=== PATIENT | male | born 1965 | race Hispanic/Latino ===

== ENCOUNTER 2021-12-16 07:11 | Day surgery (SDC) | payer OTHER ==
[2021-12-14 10:33] LABS: BASOPHILS % (AUTO) 0.9 % (0.0-5.0); HEMATOCRIT 40.2 % (42-54); LYMPHOCYTES % (AUTO) 21.4 % (21.0-51.0); MEAN CORPUSCULAR HEMOGLOBIN 30.8 pg (27.0-33.0); MEAN CORPUSCULAR HGB CONC 31.8 g/dL (32.0-36.0); MEAN CORPUSCULAR VOLUME 96.6 fL (79-99); MONOCYTES % (AUTO) 9.8 % (3.0-13.0); NEUTROPHILS % (AUTO) 63.2 % (40.0-77.0); PLATELET COUNT (AUTO) 148 K/uL (130-400); RED BLOOD CELL COUNT(AUTO) 4.16 MIL/uL (4.50-6.20); RED CELL DISTRIBUTION WIDTH 16.2 % (11.0-15.5); WHITE BLOOD COUNT (AUTO) 5.7 K/uL (4.8-10.8)
[2021-12-14 11:17] LABS: INR 1.08 (0.85-1.15); PROTHROMBIN TIME 11.7 SEC (9.6-11.6)
[2021-12-14 11:18] LABS: PARTIAL THROMBOPLASTIN TIME 30.6 SEC (26.3-35.5)
[2021-12-14 11:38] LABS: POTASSIUM 4.6 mmol/L (3.5-5.1)
[2021-12-14 12:41] LABS: CREATININE 9.3 mg/dL (0.5-1.5)
[2021-12-15 10:14] VITALS: BP 103/68
[~2021-12-16] VITALS: Ht 175.3 cm; Wt 97.6 kg
[2021-12-16] VITALS (12 sets, daily range): BP systolic 69–130; BP diastolic 39–87
[~2021-12-16 07:11] MED LIST: AMIO200T68 PO; APIX5TAB PO; DiphenhydrAMINE HCL 50 MG/ML VIAL IVP SCH; ESOM40CA54 PO; FERR210T PO; INSU100V12 SQ; METO-409 PO; NITR0.4T50 SL; SUCR500T PO
[2021-12-16] MEDS ORDERED: PROPOFOL 10 MG/ML 20ML VIAL IV ONE (09:25)
[2021-12-16] MEDS ORDERED: LIDOCAINE HCL 2% VISCOUS 15 ML UDCUP ONE (09:32)
[2021-12-16] MEDS ORDERED: LIDOCAINE HCL 1% 20 ML VIAL ONE (09:32)
== END 2021-12-16 10:55 | disposition home or self-care (01) ==
LOC: DAH 07:11
PROVIDERS: ATTEND Internal Medicine Interventional Cardiology
DX: I48.0 Paroxysmal atrial fibrillation (principal); Z20.822 Contact with and (suspected) exposure to COVID-19; I34.0 Nonrheumatic mitral (valve) insufficiency; I48.92 Unspecified atrial flutter; I45.10 Unspecified right bundle-branch block; E11.51 Type 2 diabetes mellitus with diabetic peripheral angiopathy without gangrene; I10 Essential (primary) hypertension; E66.01 Morbid (severe) obesity due to excess calories; I25.110 Atherosclerotic heart disease of native coronary artery with unstable angina pectoris; I25.2 Old myocardial infarction; E78.5 Hyperlipidemia, unspecified; Z79.01 Long term (current) use of anticoagulants; Z79.899 Other long term (current) drug therapy; Z95.5 Presence of coronary angioplasty implant and graft; Z82.49 Family history of ischemic heart disease and other diseases of the circulatory system; Z87.891 Personal history of nicotine dependence; Z72.89 Other problems related to lifestyle; Z68.31 Body mass index [BMI] 31.0-31.9, adult
CPT/HCPCS: 80048; 85025; 85610; 85730; 36415 ×2; 84132; 82948; 87426; 92960; 93312; 93005 ×2; A4223 ×3; J2704; A4615; A4215; A7002; A4222; A4221; A4663; A4216; A4606; 76942; 99156; 99157

== ENCOUNTER 2022-07-19 15:49 | Emergency (ER) | payer OTHER ==
[~2022-07-19] VITALS: Ht 175.3 cm; Wt 99.8 kg
[~2022-07-19 15:49] MED LIST changes: -DiphenhydrAMINE HCL 50 MG/ML VIAL IVP SCH
[2022-07-19] MEDS ORDERED: CHLORPROMAZINE HCL 25 MG/ML 1ML AMP IM SCH (17:30)
[2022-07-19 18:42] VITALS: BP 108/61
[2022-07-19] MEDS ORDERED: CHLO25 PO (18:49)
[2022-07-21] MEDS ORDERED: VERI2.5T PO (13:41)
[2022-07-21] MEDS ORDERED: PROP150T28 PO (13:42)
== END 2022-07-19 18:56 | disposition home or self-care (01) ==
LOC: EDH 15:49
DX: R06.6 Hiccough (principal); I13.0 Hypertensive heart and chronic kidney disease with heart failure and stage 1 through stage 4 chronic kidney disease, or unspecified chronic kidney disease; E11.22 Type 2 diabetes mellitus with diabetic chronic kidney disease; N18.9 Chronic kidney disease, unspecified; I50.9 Heart failure, unspecified; Z79.01 Long term (current) use of anticoagulants; Z79.4 Long term (current) use of insulin; Z95.5 Presence of coronary angioplasty implant and graft
CPT/HCPCS: 99283; 96372; J3230

== ENCOUNTER 2022-07-26 08:46 | Day surgery (SDC) | payer OTHER ==
[2022-07-21 13:11] LABS: BASOPHILS % (AUTO) 0.6 % (0.0-5.0); EOSINOPHILS % (AUTO) 5.1 % (0.0-8.0); HEMATOCRIT 39.1 % (42-54); LYMPHOCYTES % (AUTO) 17.8 % (21.0-51.0); MEAN CORPUSCULAR HEMOGLOBIN 31.6 pg (27.0-33.0); MEAN CORPUSCULAR HGB CONC 31.5 g/dL (32.0-36.0); MEAN CORPUSCULAR VOLUME 100.5 fL (79-99); MONOCYTES % (AUTO) 11.6 % (3.0-13.0); NEUTROPHILS % (AUTO) 64.7 % (40.0-77.0); PLATELET COUNT (AUTO) 125 K/uL (130-400); RED BLOOD CELL COUNT(AUTO) 3.89 MIL/uL (4.50-6.20); WHITE BLOOD COUNT (AUTO) 4.7 K/uL (4.8-10.8)
[2022-07-21 13:22] LABS: POTASSIUM 4.4 mmol/L (3.5-5.1)
[2022-07-21 13:23] LABS: INR 1.15 (0.85-1.15); PROTHROMBIN TIME 12.4 SEC (9.6-11.6)
[2022-07-21 13:25] LABS: PARTIAL THROMBOPLASTIN TIME 30.3 SEC (26.3-35.5)
[2022-07-21 13:27] LABS: CREATININE 9.1 mg/dL (0.5-1.5)
[2022-07-21 13:34] LABS: B-TYPE NATRIURETIC PEPTIDE 1860 pg/mL (0-100)
[~2022-07-26] VITALS: Ht 175.3 cm; Wt 104.7 kg
[2022-07-26] VITALS (9 sets, daily range): BP systolic 91–107; BP diastolic 61–77
[~2022-07-26 08:46] MED LIST changes: +0.9%NACL 1000ML 1,000 ML IV SCH; -AMIO200T68 PO; -ESOM40CA54 PO; -FERR210T PO; -NITR0.4T50 SL; +PROP150T28 PO; -SUCR500T PO; +VERI2.5T PO
[2022-07-26] MEDS ORDERED: NITROGLYCERIN 50MG VIAL ONE (09:21)
[2022-07-26] MEDS ORDERED: VERAPAMIL HCL 2.5 MG/ML VIAL ONE (09:21)
[2022-07-26] MEDS ORDERED: IOHEXOL 350 MG/ML 100ML INFUS..BTL IV ONE ×2 (09:21→10:37)
[2022-07-26] MEDS ORDERED: LIDOCAINE HCL 400MG/20ML VIAL ONE (09:21)
[2022-07-26] MEDS ORDERED: HEPARIN 10,000 UNIT/10ML (1,000 UNIT/ML) VIAL ONE (09:21)
[2022-07-26] MEDS ORDERED: IOHEXOL-350 50ML VIAL IV ONE (09:21)
[2022-07-26] MEDS ORDERED: BIVALIRUDIN 250 MG/VIAL IV ONE (09:22)
[2022-07-26] MEDS ORDERED: FENTANYL CITRATE PF 50 MCG/1 ML 2ML VIAL ONE (09:52)
[2022-07-26] MEDS ORDERED: MIDAZOLAM HCL 1 MG/ML 2ML VIAL ONE (09:52)
[2022-07-26 10:10] LABS: BASOPHILS % (AUTO) 0.8 % (0.0-5.0); EOSINOPHILS % (AUTO) 3.2 % (0.0-8.0); HEMATOCRIT 38.8 % (42-54); LYMPHOCYTES % (AUTO) 22.3 % (21.0-51.0); MEAN CORPUSCULAR HEMOGLOBIN 31.7 pg (27.0-33.0); MEAN CORPUSCULAR HGB CONC 31.4 g/dL (32.0-36.0); MEAN CORPUSCULAR VOLUME 100.8 fL (79-99); MONOCYTES % (AUTO) 10.3 % (3.0-13.0); NEUTROPHILS % (AUTO) 62.7 % (40.0-77.0); PLATELET COUNT (AUTO) 115 K/uL (130-400); RED BLOOD CELL COUNT(AUTO) 3.85 MIL/uL (4.50-6.20); RED CELL DISTRIBUTION WIDTH 15.6 % (11.0-15.5)
[2022-07-26 10:25] LABS: POTASSIUM 3.9 mmol/L (3.5-5.1)
[2022-07-26 10:27] LABS: CREATININE 9.1 mg/dL (0.5-1.5)
[2022-07-26 10:41] LABS: B-TYPE NATRIURETIC PEPTIDE 1910 pg/mL (0-100)
[2022-07-26] MEDS ORDERED: 0.9%NACL 10ML VIAL IV SCH (11:30)
[2022-07-26] MEDS ORDERED: INSULIN HUMULIN R 100 UNIT/ML 3ML SQ SCH (11:30)
[2022-07-26] MEDS ORDERED: DEXTROSE 50%-WATER 50 ML DISP.SYRIN IV PRN (11:30)
[2022-07-26] MEDS ORDERED: CLOPIDOGREL 300MG TAB ONE (11:33)
== END 2022-07-26 14:50 | disposition home or self-care (01) ==
LOC: DAH 08:46
PROVIDERS: ATTEND Internal Medicine Interventional Cardiology
DX: I25.110 Atherosclerotic heart disease of native coronary artery with unstable angina pectoris (principal); E11.22 Type 2 diabetes mellitus with diabetic chronic kidney disease; I13.2 Hypertensive heart and chronic kidney disease with heart failure and with stage 5 chronic kidney disease, or end stage renal disease; N18.6 End stage renal disease; I50.42 Chronic combined systolic (congestive) and diastolic (congestive) heart failure; E11.43 Type 2 diabetes mellitus with diabetic autonomic (poly)neuropathy; E11.59 Type 2 diabetes mellitus with other circulatory complications; E11.51 Type 2 diabetes mellitus with diabetic peripheral angiopathy without gangrene; I44.7 Left bundle-branch block, unspecified; I48.0 Paroxysmal atrial fibrillation; E66.01 Morbid (severe) obesity due to excess calories; I48.11 Longstanding persistent atrial fibrillation; E78.2 Mixed hyperlipidemia; I42.8 Other cardiomyopathies; Z79.01 Long term (current) use of anticoagulants; Z79.899 Other long term (current) drug therapy; Z68.31 Body mass index [BMI] 31.0-31.9, adult; Z99.2 Dependence on renal dialysis
CPT/HCPCS: 80048 ×2; 83880 ×2; 85025 ×2; 85610; 85730; 36415 ×2; 71045; 93005; 92920; 84484; 82948; 93458; C1887 ×3; C1894 ×2; C1769 ×2; C1760; C1725 ×2; J3010; J3490 ×2; J7030; J2250; J1644; J0583; Q9967 ×3; A4215; A4222; A4221; A4663; A4216; A4606; Q9965 ×3; A4223 ×3; 99156; 99157

== ENCOUNTER 2022-07-31 23:10 | Observation (INO) | payer OTHER ==
[~2022-07-31] VITALS: Ht 175.3 cm; Wt 106.1 kg
[~2022-07-31 23:10] MED LIST changes: -0.9%NACL 1000ML 1,000 ML IV SCH
[2022-07-31 23:41] LABS: BASOPHILS % (AUTO) 0.7 % (0.0-5.0); EOSINOPHILS % (AUTO) 3.4 % (0.0-8.0); HEMATOCRIT 34.2 % (42-54); LYMPHOCYTES % (AUTO) 17.1 % (21.0-51.0); MEAN CORPUSCULAR HEMOGLOBIN 32.2 pg (27.0-33.0); MEAN CORPUSCULAR HGB CONC 31.9 g/dL (32.0-36.0); MEAN CORPUSCULAR VOLUME 101.2 fL (79-99); MONOCYTES % (AUTO) 8.5 % (3.0-13.0); NEUTROPHILS % (AUTO) 69.8 % (40.0-77.0); PLATELET COUNT (AUTO) 94 K/uL (130-400); RED BLOOD CELL COUNT(AUTO) 3.38 MIL/uL (4.50-6.20); RED CELL DISTRIBUTION WIDTH 15.5 % (11.0-15.5); WHITE BLOOD COUNT (AUTO) 5.6 K/uL (4.8-10.8)
[2022-07-31 23:59] LABS: ALBUMIN 3.2 g/dL (3.5-5.0); POTASSIUM 4.1 mmol/L (3.5-5.1); TOTAL PROTEIN, SERUM 7.4 g/dL (6.0-8.3)
[2022-08-01] VITALS (26 sets, daily range): BP systolic 73–160; BP diastolic 33–76
[2022-08-01 00:01] LABS: CREATININE 10.8 mg/dL (0.5-1.5)
[2022-08-01 00:11] LABS: B-TYPE NATRIURETIC PEPTIDE 1320 pg/mL (0-100)
[2022-08-01] MEDS ORDERED: SUCR500T PO (02:50)
[2022-08-01] MEDS ORDERED: ATOR20TA65 PO (02:51)
[2022-08-01] MEDS ORDERED: MIDO10TA PO (02:53)
[2022-08-01] MEDS ORDERED: VERI5TAB PO (02:54)
[2022-08-01] MEDS ORDERED: FERR210T PO (02:57)
[2022-08-01] MEDS ORDERED: METO-408 PO (02:57)
[2022-08-01] MEDS ORDERED: CHLO25TA68 PO (02:58)
[2022-08-01] MEDS ORDERED: CLOP75TA32 PO (02:59)
[2022-08-01] MEDS ORDERED: MAGNESIUM 2GM PREMIX 50ML 50 ML IV PRN (03:00)
[2022-08-01] MEDS ORDERED: HYDROMORPHONE 1 MG INJ IV PRN (03:00)
[2022-08-01] MEDS ORDERED: APIX2.5T PO (03:00)
[2022-08-01] MEDS ORDERED: ONDANSETRON 4MG INJ IV PRN (03:00)
[2022-08-01] MEDS ORDERED: KCL 20 MEQ ERTAB PO PRN (03:00)
[2022-08-01] MEDS ORDERED: POTASSIUM CHLORIDE 10% ELIXIR 20 MEQ/15 ML UDCUP PO PRN (03:00)
[2022-08-01] MEDS ORDERED: ACETAMINOPHEN 325 MG TAB PO PRN ×2 (03:00)
[2022-08-01] MEDS ORDERED: POTASSIUM CHLORIDE 10MEQ/100ML 100 ML IV PRN (03:00)
[2022-08-01 03:16] LABS: BASOPHILS % (AUTO) 0.9 % (0.0-5.0); EOSINOPHILS % (AUTO) 3.8 % (0.0-8.0); HEMATOCRIT 34.4 % (42-54); LYMPHOCYTES % (AUTO) 18.2 % (21.0-51.0); MEAN CORPUSCULAR HEMOGLOBIN 32.2 pg (27.0-33.0); MEAN CORPUSCULAR HGB CONC 32.3 g/dL (32.0-36.0); MEAN CORPUSCULAR VOLUME 99.7 fL (79-99); MONOCYTES % (AUTO) 8.8 % (3.0-13.0); NEUTROPHILS % (AUTO) 67.6 % (40.0-77.0); PLATELET COUNT (AUTO) 103 K/uL (130-400); RED BLOOD CELL COUNT(AUTO) 3.45 MIL/uL (4.50-6.20); RED CELL DISTRIBUTION WIDTH 15.4 % (11.0-15.5); WHITE BLOOD COUNT (AUTO) 5.6 K/uL (4.8-10.8)
[2022-08-01 03:26] LABS: HEMOGLOBIN A1C 8.3 % (4.0-6.0)
[2022-08-01 03:28] LABS: MAGNESIUM 1.9 mg/dL (1.80-2.40); POTASSIUM 4.4 mmol/L (3.5-5.1)
[2022-08-01 03:32] LABS: CREATININE 11.1 mg/dL (0.5-1.5)
[2022-08-01] MEDS: INSULIN HUMULIN R 100 UNIT/ML 3ML SQ SCH ×4 (05:53→20:47)
[2022-08-01] MEDS: PANTOPRAZOLE 40 MG TAB DR PO SCH (08:41)
[2022-08-01] MEDS: LACTULOSE 20 GM/30 ML UDCUP PO SCH ×2 (08:41→19:47)
[2022-08-01] MEDS: APIXABAN 2.5 MG TABLET PO SCH ×2 (08:42→19:47)
[2022-08-01] MEDS: CLOPIDOGREL 75MG TAB PO SCH (08:47)
[2022-08-01] MEDS: METOPROLOL SUCCINATE 25 MG TAB.SR.24H PO SCH (08:48)
[2022-08-01] MEDS ORDERED: NON-FORMULARY MEDICATION 1 EACH (Midodrine HCl 10 MG) PO SCH (09:00)
[2022-08-01] MEDS ORDERED: PHARMACY COMMUNICATION MISC SCH ×2 (09:00→20:00)
[2022-08-01] MEDS ORDERED: MIDODRINE HCL 5 MG TABLET PO SCH (10:30)
[2022-08-01] MEDS: FERRIC CITRATE 210 MG PO SCH ×2 (11:04→15:37)
[2022-08-01] MEDS: SACUBITRIL/VALSARTAN 1 EACH TABLET PO SCH (19:48)
[2022-08-01] MEDS ORDERED: PHARMACY COMMUNICATION MISC PRN (20:00)
[2022-08-01] MEDS ORDERED: ATORVASTATIN 20 MG TABLET PO SCH (21:00)
[2022-08-02 03:20] VITALS: BP 100/45
[2022-08-02 05:07] LABS: BASOPHILS % (AUTO) 0.9 % (0.0-5.0); EOSINOPHILS % (AUTO) 4.2 % (0.0-8.0); LYMPHOCYTES % (AUTO) 16.1 % (21.0-51.0); MEAN CORPUSCULAR HEMOGLOBIN 32.1 pg (27.0-33.0); MEAN CORPUSCULAR HGB CONC 32.1 g/dL (32.0-36.0); MONOCYTES % (AUTO) 10.1 % (3.0-13.0); NEUTROPHILS % (AUTO) 68.3 % (40.0-77.0); PLATELET COUNT (AUTO) 103 K/uL (130-400); RED CELL DISTRIBUTION WIDTH 15.4 % (11.0-15.5); WHITE BLOOD COUNT (AUTO) 5.5 K/uL (4.8-10.8)
[2022-08-02 05:23] LABS: POTASSIUM 3.8 mmol/L (3.5-5.1)
[2022-08-02 05:25] LABS: CREATININE 9.4 mg/dL (0.5-1.5)
[2022-08-02 05:30] LABS: MAGNESIUM 2.1 mg/dL (1.80-2.40)
[2022-08-02] MEDS: INSULIN HUMULIN R 100 UNIT/ML 3ML SQ SCH ×3 (05:59→16:30)
[2022-08-02] MEDS: HYDROCODONE/ACETAMINOPHEN 5/325 MG TAB PO PRN ×2 (06:08→14:57)
[2022-08-02 07:36] VITALS: BP 150/49
[2022-08-02] MEDS: FERRIC CITRATE 210 MG PO SCH ×3 (08:00→16:33)
[2022-08-02] MEDS: LACTULOSE 20 GM/30 ML UDCUP PO SCH (09:00)
[2022-08-02] MEDS: PANTOPRAZOLE 40 MG TAB DR PO SCH (09:05)
[2022-08-02] MEDS: SACUBITRIL/VALSARTAN 1 EACH TABLET PO SCH (09:05)
[2022-08-02] MEDS: METOPROLOL SUCCINATE 25 MG TAB.SR.24H PO SCH (09:06)
[2022-08-02] MEDS: APIXABAN 2.5 MG TABLET PO SCH (09:06)
[2022-08-02] MEDS: CLOPIDOGREL 75MG TAB PO SCH (09:06)
[2022-08-02 10:27] LABS: RETICULOCYTE % (AUTO) 1.86 % (0.42-2.23)
[2022-08-02 11:01] LABS: % IRON SATURATION 20.8 % (30-44)
[2022-08-02 11:48] VITALS: BP 91/63
[2022-08-02] MEDS ORDERED: SACU1TAB PO (12:41)
[2022-08-02] MEDS ORDERED: CHLO25TA68 PO (12:41)
[2022-08-02] MEDS ORDERED: CYANOCOBALAMIN (VITAMIN B-12) 1000 MCG/ML 1ML VIAL IM SCH (13:00)
[2022-08-02] MEDS ORDERED: FOLIC ACID 5 MG/ML VIAL IV SCH (13:00)
[2022-08-02] MEDS ORDERED: IRON SUCROSE COMPLEX 500 MG in 0.9%NACL 50ML 50 ML IV SCH (13:00)
[2022-08-02 16:44] VITALS: BP 98/56
[2022-08-02 20:28] LABS: HEPATITIS B SURFACE ANTIGEN Non-Reactive (Nonreactive)
[2022-08-03] MEDS ORDERED: MIDODRINE HCL 5 MG TABLET PO SCH (09:00)
[2022-08-11] MEDS ORDERED: CHLO25TA68 PO (11:53)
[2022-08-11] MEDS ORDERED: [UNRECOGNIZED DRUG - OTHER] (11:53)
[2022-08-11] MEDS ORDERED: AURYXIA PO (11:53)
[2022-08-11] MEDS ORDERED: PANT40TA54 PO (11:53)
== END 2022-08-02 17:30 | disposition home or self-care (01) ==
LOC: EDH 23:10 → INTOOBSV 08-01 02:42 → EDHIP 08-01 02:42 → 4AH 08-01 03:55
PROVIDERS: ADMIT Internal Medicine; ATTEND Internal Medicine
DX: E87.70 Fluid overload, unspecified (principal); Z20.822 Contact with and (suspected) exposure to COVID-19; I13.2 Hypertensive heart and chronic kidney disease with heart failure and with stage 5 chronic kidney disease, or end stage renal disease; E11.22 Type 2 diabetes mellitus with diabetic chronic kidney disease; I50.43 Acute on chronic combined systolic (congestive) and diastolic (congestive) heart failure; N18.6 End stage renal disease; D63.1 Anemia in chronic kidney disease; I95.9 Hypotension, unspecified; D53.9 Nutritional anemia, unspecified; I25.10 Atherosclerotic heart disease of native coronary artery without angina pectoris; E78.5 Hyperlipidemia, unspecified; Z99.2 Dependence on renal dialysis; Z79.01 Long term (current) use of anticoagulants; Z79.899 Other long term (current) drug therapy; Z79.02 Long term (current) use of antithrombotics/antiplatelets; Z95.5 Presence of coronary angioplasty implant and graft; Z51.5 Encounter for palliative care
CPT/HCPCS: 71045; 87635; 82550; 83874; 84484 ×4; 80053; 83880; 85025 ×3; 87804 ×2; 36415 ×3; 93005; 99285; 96365; 96366; 83036; 83735 ×2; 84100; 80048 ×2; 82140; 87040 ×2; 82948 ×7; 84207; 96372 ×3; 96367; 96375; 83540; 83550; 82728; 85045; 86706; 87340; 86704; 82607; 82746; C9803; J1815 ×3; J3475; G0378; J3420; J3490; J1756; 90935

== ENCOUNTER 2022-08-19 15:00 | Inpatient (IN) | payer OTHER ==
[2022-08-18 10:09] LABS: BASOPHILS # (AUTO) 0.04 K/uL (0.00-0.20); BASOPHILS % (AUTO) 0.9 % (0.0-5.0); EOSINOPHILS # (AUTO) 0.18 K/uL (0.00-0.70); EOSINOPHILS % (AUTO) 3.9 % (0.0-8.0); HEMATOCRIT 36.8 % (42-54); IMMATURE GRANULOCYTE ABSOLUTE 0.01 K/uL (0-1); LYMPHOCYTES # (AUTO) 0.9 K/uL (1.0-4.8); LYMPHOCYTES % (AUTO) 18.6 % (21.0-51.0); MEAN CORPUSCULAR HEMOGLOBIN 32.3 pg (27.0-33.0); MEAN CORPUSCULAR HGB CONC 32.1 g/dL (32.0-36.0); MEAN CORPUSCULAR VOLUME 100.8 fL (79-99); MONOCYTES # (AUTO) 0.5 K/uL (0.1-1.0); MONOCYTES % (AUTO) 9.9 % (3.0-13.0); NEUTROPHILS # (AUTO) 3.1 K/uL (1.8-7.7); NEUTROPHILS % (AUTO) 66.5 % (40.0-77.0); PLATELET COUNT (AUTO) 64 K/uL (130-400); RED BLOOD CELL COUNT(AUTO) 3.65 MIL/uL (4.50-6.20); WHITE BLOOD COUNT (AUTO) 4.6 K/uL (4.8-10.8)
[2022-08-18 10:20] LABS: HEMOGLOBIN A1C 8.1 % (4.0-6.0)
[2022-08-18 10:27] VITALS: BP 100/67; PULSE 128; RESP 19
[2022-08-18 10:36] LABS: ALBUMIN 3.6 g/dL (3.5-5.0); POTASSIUM 3.6 mmol/L (3.5-5.1); TOTAL PROTEIN, SERUM 7.9 g/dL (6.0-8.3)
[2022-08-18 10:42] LABS: CREATININE 8.7 mg/dL (0.5-1.5)
[2022-08-18 10:42] LABS: ABG HCO3 25.4 mmol/L (21.0-28.0); ABG PCO2 36 mmHg (35-48); ABG PH 7.466 (7.35-7.450); DEVICE COMMENT RAM RN RR; PO2, ARTERIAL BG 85.7 mmHg (83.0-108.0); VENT MODE, BG RA (ROOM AIR)
[2022-08-18 10:44] LABS: B-TYPE NATRIURETIC PEPTIDE 1710 pg/mL (0-100)
[~2022-08-19] VITALS: Ht 172.7 cm; Wt 107.5 kg
[~2022-08-19 15:00] MED LIST changes: +APIX2.5T PO; -APIX5TAB PO; +ATOR20TA65 PO; +AURYXIA PO; +CHLO25TA68 PO; +CLOP75TA32 PO; -INSU100V12 SQ; +METO-408 PO; -METO-409 PO; +PANT40TA54 PO; -PROP150T28 PO; +SUCR500T PO; -VERI2.5T PO; +VERI5TAB PO; +[UNRECOGNIZED DRUG - OTHER]
[2022-08-23] VITALS (33 sets, daily range): BP systolic 96–134; BP diastolic 62–85; PULSE 87–117; RESP 11–20; TEMP 98.4–98.7; O2SAT 98–100
[2022-08-23] MEDS ORDERED: AMINOCAPROIC ACID 15,000 MG in 0.9% NACL 500ML IV PRN (08:00)
[2022-08-23] MEDS ORDERED: EPINEPHRINE PF 1MG (1:1,000) 10 MG in 0.9% NACL 250ML 240 ML IV PRN (08:00)
[2022-08-23] MEDS ORDERED: NOREPINEPHRINE BITARTRATE 8 MG in DEXTROSE 5%-WATER 250 ML IV PRN (08:00)
[2022-08-23] MEDS ORDERED: CEFAZOLIN SODIUM 2 GM VIAL ONE (11:01)
[2022-08-23] MEDS ORDERED: 0.9% NACL 500ML IV.SOLN 500 ML IV ONE (11:01)
[2022-08-23 11:14] LABS: POTASSIUM 3.7 mmol/L (3.5-5.1)
[2022-08-23 11:17] LABS: CREATININE 10.5 mg/dL (0.5-1.5)
[2022-08-23] MEDS ORDERED: PAPAVERINE HCL 30 MG/ML 2ML VIAL ONE (11:35)
[2022-08-23] MEDS ORDERED: CEFAZOLIN SODIUM 1 GM VIAL ONE (11:35)
[2022-08-23 11:42] LABS: INR 1.27 (0.85-1.15); PROTHROMBIN TIME 14.5 SEC (9.6-11.6)
[2022-08-23] MEDS ORDERED: MAGNESIUM HYDROXIDE 30 ML/UDCUP PO PRN (12:00)
[2022-08-23] MEDS: SUCROFERRIC OXYHYDROXIDE 500 MG PO SCH ×2 (12:00→17:00)
[2022-08-23] MEDS: FERRIC CITRATE 1 GM PO SCH ×2 (12:00→17:00)
[2022-08-23] MEDS ORDERED: HEPARIN 10,000 UNIT/10ML (1,000 UNIT/ML) VIAL ONE ×2 (12:21→16:15)
[2022-08-23] MEDS ORDERED: ESMOLOL HCL 10 MG/ML 10 ML VIAL ONE (12:21)
[2022-08-23] MEDS ORDERED: EPINEPHRINE PF 1MG (1:1,000) 1 MG/ML AMP ONE (12:21)
[2022-08-23] MEDS ORDERED: AMINOCAPROIC ACID 5,000MG VIAL ONE (12:21)
[2022-08-23] MEDS ORDERED: LIDOCAINE PF 100MG/5ML (2%) SYRINGE 5ML ONE (12:21)
[2022-08-23] MEDS ORDERED: SODIUM BICARB 50MEQ 50ML VIAL 150 ML ONE (12:21)
[2022-08-23] MEDS ORDERED: FENTANYL CITRATE PF 50 MCG/1 ML 20ML VIAL IJ ONE (12:21)
[2022-08-23] MEDS ORDERED: PROPOFOL 10 MG/ML 20ML VIAL IV ONE (12:21)
[2022-08-23] MEDS ORDERED: NOREPINEPHRINE BITARTRATE 1 MG/1 ML ML IV ONE (12:21)
[2022-08-23] MEDS ORDERED: MIDAZOLAM HCL 1 MG/ML 2ML VIAL ONE (12:21)
[2022-08-23] MEDS ORDERED: ROCURONIUM 10MG/1ML SYR 10 MG/ML ML ONE (12:22)
[2022-08-23] MEDS ORDERED: ETOMIDATE 20MG VIAL ONE (12:23)
[2022-08-23] MEDS ORDERED: SUCCINYLCHOLINE CHLORIDE 20 MG/ML 10 ML VIAL ONE (12:25)
[2022-08-23] MEDS ORDERED: CEFAZOLIN SODIUM 2 GM VIAL IVPB ONE (12:45)
[2022-08-23] MEDS ORDERED: INSU100V12 SQ (12:56)
[2022-08-23] MEDS ORDERED: VASOPRESSIN 20 UNITS/ML 1ML VIAL ONE (13:08)
[2022-08-23] MEDS ORDERED: CEFAZOLIN SODIUM 1 GM VIAL IRRIG ONE (13:12)
[2022-08-23] MEDS ORDERED: ONDANSETRON 4MG INJ IV PRN (13:30)
[2022-08-23] MEDS ORDERED: GLUCAGON 1MG KIT 1 MG ML IM PRN (13:30)
[2022-08-23] MEDS ORDERED: ALBUMIN (HUMAN) 5% 250 ML IV PRN (13:30)
[2022-08-23] MEDS ORDERED: PROPOFOL 1000 MG/100 ML 100 ML IV PRN (13:30)
[2022-08-23] MEDS ORDERED: NITROGLYCERIN 50MG/D5W 250ML 250 BOT IV SCH (13:30)
[2022-08-23] MEDS ORDERED: 0.9% NACL 500ML IV.SOLN 500 ML IV SCH (13:30)
[2022-08-23] MEDS ORDERED: INSULIN REGULAR, HUMAN 3ML 100 UNIT in 0.9%NACL 100ML 99 ML IV SCH ×2 (13:30)
[2022-08-23] MEDS ORDERED: MORPHINE 2 MG SYG IV PRN (13:30)
[2022-08-23] MEDS ORDERED: 0.9%NACL 10ML VIAL IVP PRN (13:30)
[2022-08-23] MEDS ORDERED: DEXTROSE 50%-WATER 50 ML DISP.SYRIN IV PRN (13:30)
[2022-08-23] MEDS ORDERED: ACETAMINOPHEN 650 MG SUPPOSITORY RC PRN (13:30)
[2022-08-23] MEDS ORDERED: ACETAMINOPHEN 325 MG TAB PO PRN (13:30)
[2022-08-23] MEDS ORDERED: POTASSIUM PHOS 15 mMOL+NS250ML 250 ML IV PRN (13:30)
[2022-08-23] MEDS ORDERED: AMINOCAPROIC ACID 5,000MG VIAL 15,000 MG in 0.9% NACL 250ML 250 ML IV SCH (13:30)
[2022-08-23] MEDS ORDERED: MORPHINE 4 MG SYG IV PRN (13:30)
[2022-08-23] MEDS ORDERED: 0.9%NACL 1000ML 1,000 ML IV SCH (13:30)
[2022-08-23] MEDS ORDERED: SODIUM BICARB 8.4% 50ML SYRINGE IVP ONE (13:50)
[2022-08-23] MEDS ORDERED: CACL 1GM SYG IVP ONE ×2 (13:50→15:43)
[2022-08-23] MEDS ORDERED: EPINEPHRINE 1MG/10ML(1:10,000) 0.1 MG/ML SYG IVP ONE (13:50)
[2022-08-23] MEDS ORDERED: AMIODARONE 150MG VIAL ONE (14:14)
[2022-08-23] MEDS ORDERED: PROTAMINE SULFATE 10 MG/ML 5 ML VIAL ONE (15:18)
[2022-08-23] MEDS ORDERED: ATROPINE 1MG SYG IVP ONE (15:43)
[2022-08-23] MEDS ORDERED: AMIODARONE IV ONE (15:51)
[2022-08-23] MEDS ORDERED: NACL 0.9% IV ONE (15:51)
[2022-08-23] MEDS ORDERED: ASPIRIN 81MG CHEW TAB NG SCH (16:00)
[2022-08-23] MEDS ORDERED: CALCIUM GLUC 1GM/10ML VIAL ONE ×3 (16:14→16:15)
[2022-08-23] MEDS ORDERED: SODIUM BICARB 50MEQ 50ML VIAL 350 ML ONE (16:15)
[2022-08-23 17:06] LABS: ABG BASE EXCESS -0.4 mmol/L (-2.0-3.0); ABG HCO3 24.2 mmol/L (21.0-28.0); ABG OXYGEN SATURATION 97.3 % (95.0-99.0); ABG PCO2 39 mmHg (35-48); ABG PH 7.406 (7.35-7.450); CARBON MONOXIDE 0.3; HHb 2.7; PO2, ARTERIAL BG 113.2 mmHg (83.0-108.0); VENT MODE, BG SIMV (ROOM AIR)
[2022-08-23] MEDS ORDERED: DEXMEDETOMIDINE 400MCG/NS100ML IV ONE (17:20)
[2022-08-23 17:22] LABS: HEMATOCRIT 28.6 % (42-54); MEAN CORPUSCULAR HEMOGLOBIN 32.3 pg (27.0-33.0); MEAN CORPUSCULAR HGB CONC 32.2 g/dL (32.0-36.0); MEAN CORPUSCULAR VOLUME 100.4 fL (79-99); RED BLOOD CELL COUNT(AUTO) 2.85 MIL/uL (4.50-6.20); RED CELL DISTRIBUTION WIDTH 16.2 % (11.0-15.5); WHITE BLOOD COUNT (AUTO) 11.9 K/uL (4.8-10.8)
[2022-08-23 17:30] LABS: INR 1.71 (0.85-1.15); PROTHROMBIN TIME 19.2 SEC (9.6-11.6)
[2022-08-23 17:31] LABS: PARTIAL THROMBOPLASTIN TIME 26.6 SEC (26.3-35.5)
[2022-08-23 17:40] LABS: MAGNESIUM 1.8 mg/dL (1.80-2.40); POTASSIUM 3.1 mmol/L (3.5-5.1)
[2022-08-23] MEDS: POTASSIUM CHLORIDE 20MEQ/100ML 100 ML IV PRN ×3 (17:59→23:51)
[2022-08-23 18:14] LABS: ABG BASE EXCESS -3.7 mmol/L (-2.0-3.0); ABG HCO3 20.5 mmol/L (21.0-28.0); ABG OXYGEN SATURATION 97.9 % (95.0-99.0); ABG PCO2 34 mmHg (35-48); ABG PH 7.395 (7.35-7.450); CARBON MONOXIDE 0.2; DEVICE COMMENT ALINE; HHb 2.1; VENT MODE, BG SIMV (ROOM AIR)
[2022-08-23 18:17] LABS: ABG BASE EXCESS -2.6 mmol/L (-2.0-3.0); ABG HCO3 21.8 mmol/L (21.0-28.0); ABG PCO2 36 mmHg (35-48); ABG PH 7.398 (7.35-7.450); CARBON MONOXIDE 0.4; DEVICE COMMENT ALINE; PO2, ARTERIAL BG 129.4 mmHg (83.0-108.0); VENT MODE, BG SIMV (ROOM AIR)
[2022-08-23] MEDS: SODIUM BICARB 50MEQ 50ML VIAL IV PRN ×3 (18:34→23:51)
[2022-08-23 19:35] LABS: ABG BASE EXCESS 0.1 mmol/L (-2.0-3.0); ABG OXYGEN SATURATION 98.7 % (95.0-99.0); ABG PCO2 36 mmHg (35-48); ABG PH 7.437 (7.35-7.450); CARBON MONOXIDE 0.5; DEVICE COMMENT ALINE; HHb 1.3; PO2, ARTERIAL BG 158.8 mmHg (83.0-108.0); VENT MODE, BG SIMV (ROOM AIR)
[2022-08-23 19:38] LABS: ABG OXYGEN SATURATION 78.2 % (95.0-99.0); BASE EXCESS,VENOUS BLOOD GAS -1.3 (-2.0-3.0); DEVICE COMMENT RN; HCO3,VENOUS BLOOD GAS 23.2 (21.0-28.0); PCO2,VENOUS BLOOD GAS 38 (35-48); PH,VENOUS BLOOD GAS 7.403 (7.350-7.450); VENT MODE, BG SIMV (ROOM AIR)
[2022-08-23] MEDS: CALCIUM GLUC 1GM 1 GM in 0.9%NACL 50ML 50 ML IV PRN ×3 (19:48→23:51)
[2022-08-23] MEDS: MAGNESIUM 2GM PREMIX 50ML 50 ML IV PRN (19:49)
[2022-08-23] MEDS: CEFAZOLIN SODIUM 1 GM VIAL IVPB SCH (20:42)
[2022-08-23] MEDS: ATORVASTATIN 40 MG TABLET PO SCH (20:43)
[2022-08-23] MEDS: DOCUSATE SODIUM 100 MG CAP PO SCH (21:00)
[2022-08-23 21:43] LABS: ABG BASE EXCESS -2.2 mmol/L (-2.0-3.0); ABG HCO3 21.6 mmol/L (21.0-28.0); ABG PCO2 34 mmHg (35-48); ABG PH 7.421 (7.35-7.450); CARBON MONOXIDE 0.6; DEVICE COMMENT RN CRYSTAL; PO2, ARTERIAL BG 129.6 mmHg (83.0-108.0); VENT MODE, BG SIMV (ROOM AIR)
[2022-08-23] MEDS: AMIODARONE IV PRN (22:07)
[2022-08-23] MEDS: DEXTROSE 5% IV PRN (22:07)
[2022-08-23] MEDS: WATER IV PRN (22:07)
[2022-08-23] MEDS: DEXMEDETOMIDINE 400MCG/NS100ML IV SCH (22:37)
[2022-08-23 23:42] LABS: ABG OXYGEN SATURATION 97.8 % (95.0-99.0); ABG PCO2 35 mmHg (35-48); ABG PH 7.414 (7.35-7.450); CARBON MONOXIDE 0.6; DEVICE COMMENT RN CRYSTAL; HHb 2.2; PO2, ARTERIAL BG 115.2 mmHg (83.0-108.0); VENT MODE, BG SIMV (ROOM AIR)
[2022-08-24] VITALS (91 sets, daily range): BP systolic 50–190; BP diastolic 25–160; PULSE 80–115; RESP 9–43; TEMP 98.7–100.6; O2SAT 94–100
[2022-08-24 01:43] LABS: ABG BASE EXCESS 0.5 mmol/L (-2.0-3.0); ABG HCO3 23.8 mmol/L (21.0-28.0); ABG PCO2 35 mmHg (35-48); ABG PH 7.455 (7.35-7.450); DEVICE COMMENT RN CRYSTAL; PO2, ARTERIAL BG 105.8 mmHg (83.0-108.0); VENT MODE, BG SIMV (ROOM AIR)
[2022-08-24 01:46] LABS: ABG BASE EXCESS -0.4 mmol/L (-2.0-3.0); ABG HCO3 22.9 mmol/L (21.0-28.0); ABG OXYGEN SATURATION 97.9 % (95.0-99.0); ABG PCO2 33 mmHg (35-48); ABG PH 7.457 (7.35-7.450); CARBON MONOXIDE 0.6; DEVICE COMMENT RN CRYSTAL; HHb 2.1; VENT MODE, BG SIMV (ROOM AIR)
[2022-08-24] MEDS: CALCIUM GLUC 1GM 1 GM in 0.9%NACL 50ML 50 ML IV PRN ×3 (01:55→13:55)
[2022-08-24] MEDS: POTASSIUM CHLORIDE 20MEQ/100ML 100 ML IV PRN (01:55)
[2022-08-24] MEDS: CEFAZOLIN SODIUM 1 GM VIAL IVPB SCH ×2 (01:55→10:43)
[2022-08-24] MEDS: DEXMEDETOMIDINE 400MCG/NS100ML IV SCH ×2 (02:34→09:32)
[2022-08-24 03:28] LABS: ABG BASE EXCESS 0.8 mmol/L (-2.0-3.0); ABG HCO3 23.7 mmol/L (21.0-28.0); ABG OXYGEN SATURATION 97.5 % (95.0-99.0); ABG PCO2 33 mmHg (35-48); CARBON MONOXIDE 0.5; DEVICE COMMENT RN CRYSTAL; HHb 2.5; PO2, ARTERIAL BG 104.4 mmHg (83.0-108.0)
[2022-08-24] MEDS ORDERED: CALCIUM GLUC 1GM/10ML VIAL ONE (03:30)
[2022-08-24 03:43] LABS: HEMATOCRIT 34.5 % (42-54); MEAN CORPUSCULAR HEMOGLOBIN 32.4 pg (27.0-33.0); MEAN CORPUSCULAR HGB CONC 32.2 g/dL (32.0-36.0); MEAN CORPUSCULAR VOLUME 100.6 fL (79-99); RED BLOOD CELL COUNT(AUTO) 3.43 MIL/uL (4.50-6.20); RED CELL DISTRIBUTION WIDTH 16.9 % (11.0-15.5); WHITE BLOOD COUNT (AUTO) 11.9 K/uL (4.8-10.8)
[2022-08-24 03:53] LABS: INR 1.28 (0.85-1.15); PROTHROMBIN TIME 14.6 SEC (9.6-11.6)
[2022-08-24 03:54] LABS: PARTIAL THROMBOPLASTIN TIME 26.7 SEC (26.3-35.5)
[2022-08-24 03:58] LABS: MAGNESIUM 2.2 mg/dL (1.80-2.40); PHOSPHORUS 5.4 mg/dL (2.5-4.9); POTASSIUM 4.1 mmol/L (3.5-5.1)
[2022-08-24 04:14] LABS: CREATININE 10.3 mg/dL (0.5-1.5)
[2022-08-24 05:41] LABS: ABG BASE EXCESS -0.9 mmol/L (-2.0-3.0); ABG HCO3 22.3 mmol/L (21.0-28.0); ABG PCO2 33 mmHg (35-48); ABG PH 7.455 (7.35-7.450); CARBON MONOXIDE 0.7; PO2, ARTERIAL BG 96.7 mmHg (83.0-108.0); VENT MODE, BG SIMV (ROOM AIR)
[2022-08-24 07:28] LABS: ABG BASE EXCESS 0.3 mmol/L (-2.0-3.0); ABG HCO3 25.1 mmol/L (21.0-28.0); ABG OXYGEN SATURATION 93.8 % (95.0-99.0); ABG PCO2 41 mmHg (35-48); ABG PH 7.404 (7.35-7.450); CARBON MONOXIDE 0.5; HHb 6.2; PO2, ARTERIAL BG 74.6 mmHg (83.0-108.0); VENT MODE, BG SIMV (ROOM AIR)
[2022-08-24] MEDS: FERRIC CITRATE 1 GM PO SCH ×3 (07:45→16:15)
[2022-08-24] MEDS: SUCROFERRIC OXYHYDROXIDE 500 MG PO SCH ×3 (07:45→16:00)
[2022-08-24] MEDS: DOCUSATE SODIUM 100 MG CAP PO SCH ×2 (08:13→21:47)
[2022-08-24] MEDS: ASPIRIN 81 MG EC TAB PO SCH (08:13)
[2022-08-24] MEDS: PANTOPRAZOLE 40 MG TAB DR PO SCH (08:13)
[2022-08-24 12:06] LABS: ABG BASE EXCESS -0.6 mmol/L (-2.0-3.0); ABG HCO3 23.9 mmol/L (21.0-28.0); ABG OXYGEN SATURATION 94.5 % (95.0-99.0); ABG PCO2 39 mmHg (35-48); CARBON MONOXIDE 0.4; CPAP, BG 5 cm H2O; HHb 5.5; PO2, ARTERIAL BG 78.1 mmHg (83.0-108.0); VENT MODE, BG CPAP 5 PS 5 (ROOM AIR)
[2022-08-24 13:32] LABS: ABG BASE EXCESS -0.6 mmol/L (-2.0-3.0); ABG OXYGEN SATURATION 90.9 % (95.0-99.0); ABG PCO2 39 mmHg (35-48); ABG PH 7.403 (7.35-7.450); CARBON MONOXIDE 0.7; DEVICE COMMENT RR SYLVIA RN; PO2, ARTERIAL BG 64.7 mmHg (83.0-108.0); VENT MODE, BG CAFM (ROOM AIR)
[2022-08-24] MEDS: SODIUM BICARB 50MEQ 50ML VIAL IV PRN (13:54)
[2022-08-24] MEDS: TRAMADOL HCL 50 MG TABLET PO PRN (14:01)
[2022-08-24] MEDS ORDERED: AMIODARONE 200 MG TABLET PO ONE (16:00)
[2022-08-24] MEDS: ATORVASTATIN 40 MG TABLET PO SCH (21:47)
[2022-08-24] MEDS: AMIODARONE 200 MG TABLET PO SCH (21:47)
[2022-08-24] MEDS: EPINEPHRINE PF 1MG (1:1,000) 10 MG in 0.9% NACL 250ML 240 ML IV PRN (22:06)
[2022-08-24] MEDS: NOREPINEPHRIN 4MG/NS 250ML 250 ML IV PRN (22:08)
[2022-08-25] VITALS (99 sets, daily range): BP systolic 51–243; BP diastolic 25–237; PULSE 85–115; RESP 8–57; TEMP 98.9–99.3; O2SAT 94–100
[2022-08-25] LABS: ABG BASE EXCESS 3.9 mmol/L (-2.0-3.0); ABG HCO3 28.2 mmol/L (21.0-28.0); ABG OXYGEN SATURATION 97.8 % (95.0-99.0); ABG PCO2 41 mmHg (35-48); ABG PH 7.452 (7.35-7.450); DEVICE COMMENT RN, ROBERT; PO2, ARTERIAL BG 100.1 mmHg (83.0-108.0); VENT MODE, BG NRB ALINE (ROOM AIR)
[2022-08-25] MEDS: TRAMADOL HCL 50 MG TABLET PO PRN (00:28)
[2022-08-25 05:57] LABS: BASOPHILS # (AUTO) 0.04 K/uL (0.00-0.20); BASOPHILS % (AUTO) 0.3 % (0.0-5.0); EOSINOPHILS # (AUTO) 0.05 K/uL (0.00-0.70); EOSINOPHILS % (AUTO) 0.4 % (0.0-8.0); HEMATOCRIT 31.9 % (42-54); IMMATURE GRANULOCYTE ABSOLUTE 0.07 K/uL (0-1); LYMPHOCYTES # (AUTO) 0.6 K/uL (1.0-4.8); LYMPHOCYTES % (AUTO) 4.8 % (21.0-51.0); MEAN CORPUSCULAR HEMOGLOBIN 32.6 pg (27.0-33.0); MEAN CORPUSCULAR HGB CONC 31.7 g/dL (32.0-36.0); MEAN CORPUSCULAR VOLUME 102.9 fL (79-99); MONOCYTES # (AUTO) 1.3 K/uL (0.1-1.0); MONOCYTES % (AUTO) 10.2 % (3.0-13.0); NEUTROPHILS # (AUTO) 10.9 K/uL (1.8-7.7); NEUTROPHILS % (AUTO) 83.8 % (40.0-77.0); NUCLEATED RED BLOOD CELLS 0.2 % (0.0-0.19); RED CELL DISTRIBUTION WIDTH 17.6 % (11.0-15.5)
[2022-08-25 06:00] LABS: PLATELET COUNT (AUTO) 48 K/uL (130-400)
[2022-08-25 06:08] LABS: CREATININE 8.5 mg/dL (0.5-1.5)
[2022-08-25 06:17] LABS: PLATELET MORPHOLOGY COMMENT MARKED DECREASE
[2022-08-25] MEDS: FERRIC CITRATE 1 GM PO SCH ×3 (08:00→17:00)
[2022-08-25] MEDS: SUCROFERRIC OXYHYDROXIDE 500 MG PO SCH ×3 (08:00→17:00)
[2022-08-25] MEDS: AMIODARONE 200 MG TABLET PO SCH ×2 (09:11→20:02)
[2022-08-25] MEDS: ASPIRIN 81 MG EC TAB PO SCH (09:11)
[2022-08-25] MEDS: DOCUSATE SODIUM 100 MG CAP PO SCH ×2 (09:11→20:02)
[2022-08-25] MEDS: ACETYLCYSTEINE 10% 100MG/ML 4ML VIAL IH SCH ×2 (11:00→18:29)
[2022-08-25] MEDS: IPRATROPIUM 0.5 MG/2.5 ML INH IH SCH ×3 (14:00→21:36)
[2022-08-25] MEDS: MIDODRINE HCL 5 MG TABLET PO SCH ×2 (15:30→20:02)
[2022-08-25] MEDS ORDERED: PHARMACY COMMUNICATION MISC SCH (19:00)
[2022-08-25] MEDS ORDERED: INSULIN REGULAR, HUMAN 3ML 100 UNIT in 0.9%NACL 100ML 99 ML IV SCH ×2 (19:00)
[2022-08-25] MEDS: GUAIFENESIN 600 MG TABLET.ER PO SCH (20:02)
[2022-08-25] MEDS: ATORVASTATIN 40 MG TABLET PO SCH (20:02)
[2022-08-25] MEDS: TRAZODONE HCL 50 MG TAB PO PRN (20:05)
[2022-08-25] MEDS: EPINEPHRINE PF 1MG (1:1,000) 10 MG in 0.9% NACL 250ML 240 ML IV PRN (22:38)
[2022-08-26] VITALS (124 sets, daily range): BP systolic 60–300; BP diastolic 33–300; PULSE 46–168; RESP 10–43; TEMP 98–98.7; O2SAT 94–100
[2022-08-26] MEDS: IPRATROPIUM 0.5 MG/2.5 ML INH IH SCH ×4 (02:00→14:00)
[2022-08-26 04:21] LABS: HEMATOCRIT 29.4 % (42-54); MEAN CORPUSCULAR HEMOGLOBIN 32.9 pg (27.0-33.0); MEAN CORPUSCULAR HGB CONC 31.6 g/dL (32.0-36.0); MEAN CORPUSCULAR VOLUME 103.9 fL (79-99); NUCLEATED RED BLOOD CELLS 0.2 % (0.0-0.19); RED BLOOD CELL COUNT(AUTO) 2.83 MIL/uL (4.50-6.20); RED CELL DISTRIBUTION WIDTH 17.5 % (11.0-15.5); WHITE BLOOD COUNT (AUTO) 10.2 K/uL (4.8-10.8)
[2022-08-26 04:37] LABS: POTASSIUM 3.5 mmol/L (3.5-5.1)
[2022-08-26 04:45] LABS: CREATININE 9.7 mg/dL (0.5-1.5)
[2022-08-26] MEDS: POTASSIUM CHLORIDE 20MEQ/100ML 100 ML IV PRN (05:34)
[2022-08-26] MEDS: NOREPINEPHRIN 4MG/NS 250ML 250 ML IV PRN (05:35)
[2022-08-26] MEDS: ACETYLCYSTEINE 10% 100MG/ML 4ML VIAL IH SCH (06:00)
[2022-08-26] MEDS: TRAMADOL HCL 50 MG TABLET PO PRN ×2 (07:01→14:38)
[2022-08-26] MEDS: PANTOPRAZOLE 40 MG TAB DR PO SCH (07:23)
[2022-08-26] MEDS: SUCROFERRIC OXYHYDROXIDE 500 MG PO SCH ×3 (07:42→16:17)
[2022-08-26] MEDS: FERRIC CITRATE 1 GM PO SCH ×3 (07:43→16:17)
[2022-08-26] MEDS: GUAIFENESIN 600 MG TABLET.ER PO SCH ×2 (07:58→20:17)
[2022-08-26] MEDS: DOCUSATE SODIUM 100 MG CAP PO SCH ×2 (07:59→20:17)
[2022-08-26] MEDS: AMIODARONE 200 MG TABLET PO SCH ×2 (07:59→20:17)
[2022-08-26] MEDS: ASPIRIN 81 MG EC TAB PO SCH (07:59)
[2022-08-26] MEDS: MIDODRINE HCL 5 MG TABLET PO SCH ×3 (07:59→20:18)
[2022-08-26] MEDS: INSULIN HUMULIN R 100 UNIT/ML 3ML SQ SCH ×3 (11:30→20:27)
[2022-08-26] MEDS ORDERED: AMIODARONE 150MG VIAL ONE ×2 (11:39→13:31)
[2022-08-26] MEDS ORDERED: HEPARIN 10,000 UNIT/10ML (1,000 UNIT/ML) VIAL IV ONE (11:46)
[2022-08-26] MEDS ORDERED: MANNITOL 25% 50ML VIAL IV ONE (11:46)
[2022-08-26] MEDS ORDERED: CACL 1GM SYG IVP ONE (11:46)
[2022-08-26] MEDS ORDERED: SODIUM BICARB 8.4% 50ML SYRINGE IVP ONE (11:46)
[2022-08-26] MEDS ORDERED: PHENYLEPHRINE HCL 10 MG/ML 1ML VIAL IV ONE ×2 (11:46→13:50)
[2022-08-26] MEDS ORDERED: AMIODARONE 900MG VIAL 360 MG in DEXTROSE 5%-WATER 200 ML IV SCH (12:00)
[2022-08-26] MEDS ORDERED: AMIODARONE 900MG VIAL 540 MG in DEXTROSE 5%-WATER 300 ML IV SCH (12:00)
[2022-08-26] MEDS: WATER IV PRN (12:07)
[2022-08-26] MEDS: AMIODARONE IV PRN (12:07)
[2022-08-26] MEDS: DEXTROSE 5% IV PRN (12:07)
[2022-08-26 12:08] LABS: HEMATOCRIT 29.4 % (42-54); MEAN CORPUSCULAR HEMOGLOBIN 32.6 pg (27.0-33.0); MEAN CORPUSCULAR HGB CONC 31.6 g/dL (32.0-36.0); MEAN CORPUSCULAR VOLUME 103.2 fL (79-99); RED BLOOD CELL COUNT(AUTO) 2.85 MIL/uL (4.50-6.20); RED CELL DISTRIBUTION WIDTH 17.3 % (11.0-15.5); WHITE BLOOD COUNT (AUTO) 9.5 K/uL (4.8-10.8)
[2022-08-26 12:22] LABS: CARBON DIOXIDE 26 mmol/L (21-32); CHLORIDE 97 mmol/L (101-111); CREATININE 5.4 mg/dL (0.5-1.5); GLOMERULAR FILTR. RATE CALC 12 mL/min (>90); GLUCOSE,RANDOM 126 mg/dL (70-105); POTASSIUM 3.7 mmol/L (3.5-5.1); SODIUM SERUM 137 mmol/L (136-145); UREA NITROGEN, BLOOD 30 mg/dL (7-18)
[2022-08-26 12:26] LABS: ALBUMIN 2.4 g/dL (3.5-5.0); ASPARTATE AMINOTRANSFERASE 136 U/L (10-37); BILIRUBIN,TOTAL 1.1 mg/dL (0.2-1.0); PHOSPHORUS 3.9 mg/dL (2.5-4.9); TOTAL PROTEIN, SERUM 5.9 g/dL (6.0-8.3)
[2022-08-26 12:46] LABS: ALANINE AMINOTRANSFERASE < 6 U/L (12-78)
[2022-08-26] MEDS ORDERED: DIGOXIN 250 MCG/ML 2ML AMP ONE (12:48)
[2022-08-26] MEDS: MAGNESIUM 2GM PREMIX 50ML 50 ML IV PRN (12:53)
[2022-08-26] MEDS ORDERED: DIGOXIN 250 MCG/ML 2ML AMP IV SCH (13:00)
[2022-08-26] MEDS ORDERED: LIDOCAINE 2G/250ML 250 ML IV ONE (13:43)
[2022-08-26] MEDS ORDERED: LIDOCAINE 2G/250ML 250 ML IV SCH (14:00)
[2022-08-26] MEDS: ATORVASTATIN 40 MG TABLET PO SCH (20:17)
[2022-08-26] MEDS: TRAZODONE HCL 50 MG TAB PO PRN (20:17)
[2022-08-26] MEDS: HEPARIN 5,000 UNIT VIAL SQ SCH (20:18)
[2022-08-26] MEDS ORDERED: EPOETIN ALFA-EPBX (NON-ESRD) 10,000 UNIT/ML VIAL SQ SCH (21:00)
[2022-08-26] MEDS: PHENYLEPHRINE HCL 100 MG in 0.9% NACL 250ML 250 ML IV SCH (21:19)
[2022-08-27] VITALS (77 sets, daily range): BP systolic 89–164; BP diastolic 37–97; PULSE 45–118; RESP 9–60; TEMP 98.8–100.8; O2SAT 92–100
[2022-08-27 03:43] LABS: HEMATOCRIT 29.1 % (42-54); MEAN CORPUSCULAR HEMOGLOBIN 32.6 pg (27.0-33.0); MEAN CORPUSCULAR HGB CONC 32.3 g/dL (32.0-36.0); NUCLEATED RED BLOOD CELLS 0.9 % (0.0-0.19); RED BLOOD CELL COUNT(AUTO) 2.88 MIL/uL (4.50-6.20); RED CELL DISTRIBUTION WIDTH 17.4 % (11.0-15.5); WHITE BLOOD COUNT (AUTO) 11.3 K/uL (4.8-10.8)
[2022-08-27 03:47] LABS: ABG HCO3 24.4 mmol/L (21.0-28.0); ABG OXYGEN SATURATION 91.3 % (95.0-99.0); ABG PCO2 54 mmHg (35-48); ABG PH 7.269 (7.35-7.450); CARBON MONOXIDE 0.4; HHb 8.6; PO2, ARTERIAL BG 75.1 mmHg (83.0-108.0); VENT MODE, BG AMBU BAG (ROOM AIR)
[2022-08-27] MEDS ORDERED: EPINEPHRINE PF 1MG (1:1,000) 10 MG in 0.9% NACL 250ML 240 ML IV PRN (04:30)
[2022-08-27] MEDS ORDERED: LIDOCAINE HCL 1% MDV 50ML VIAL ONE (05:08)
[2022-08-27] MEDS ORDERED: DEXMEDETOMIDINE 400MCG/NS100ML IV ONE ×2 (06:12→12:36)
[2022-08-27] MEDS ORDERED: DEXMEDETOMIDINE HCL 400 MCG in 0.9%NACL 100ML 96 ML IV PRN (06:30)
[2022-08-27 07:05] LABS: ABG BASE EXCESS -3.2 mmol/L (-2.0-3.0); ABG HCO3 21.1 mmol/L (21.0-28.0); ABG OXYGEN SATURATION 97.9 % (95.0-99.0); ABG PCO2 35 mmHg (35-48); ABG PH 7.396 (7.35-7.450); CARBON MONOXIDE 0; DEVICE COMMENT RN; HHb 2.1; PO2, ARTERIAL BG 117.2 mmHg (83.0-108.0); VENT MODE, BG AC (ROOM AIR)
[2022-08-27] MEDS: INSULIN HUMULIN R 100 UNIT/ML 3ML SQ SCH ×4 (07:05→21:00)
[2022-08-27 07:11] LABS: HEMATOCRIT 28.9 % (42-54); MEAN CORPUSCULAR HEMOGLOBIN 33.2 pg (27.0-33.0); MEAN CORPUSCULAR HGB CONC 32.2 g/dL (32.0-36.0); MEAN CORPUSCULAR VOLUME 103.2 fL (79-99); RED BLOOD CELL COUNT(AUTO) 2.8 MIL/uL (4.50-6.20); RED CELL DISTRIBUTION WIDTH 17.5 % (11.0-15.5); WHITE BLOOD COUNT (AUTO) 9.6 K/uL (4.8-10.8)
[2022-08-27 07:21] LABS: MAGNESIUM 2.3 mg/dL (1.80-2.40); POTASSIUM 4.6 mmol/L (3.5-5.1)
[2022-08-27 07:27] LABS: CREATININE 8.2 mg/dL (0.5-1.5)
[2022-08-27] MEDS: FERRIC CITRATE 1 GM PO SCH ×3 (08:00→16:07)
[2022-08-27] MEDS: SUCROFERRIC OXYHYDROXIDE 500 MG PO SCH ×3 (08:00→16:07)
[2022-08-27] MEDS: SODIUM BICARB 50MEQ 50ML VIAL IV PRN ×2 (08:25→18:18)
[2022-08-27] MEDS: ASPIRIN 81 MG EC TAB PO SCH (09:08)
[2022-08-27] MEDS: GUAIFENESIN 600 MG TABLET.ER PO SCH ×2 (09:08→21:22)
[2022-08-27] MEDS: DOCUSATE SODIUM 100 MG CAP PO SCH ×2 (09:08→21:25)
[2022-08-27] MEDS: MIDODRINE HCL 5 MG TABLET PO SCH ×3 (09:09→21:22)
[2022-08-27] MEDS: HEPARIN 5,000 UNIT VIAL SQ SCH ×2 (09:10→21:25)
[2022-08-27 10:24] LABS: ABG BASE EXCESS 0.1 mmol/L (-2.0-3.0); ABG HCO3 23.4 mmol/L (21.0-28.0); ABG OXYGEN SATURATION 97.8 % (95.0-99.0); ABG PCO2 33 mmHg (35-48); ABG PH 7.466 (7.35-7.450); CARBON MONOXIDE 0.3; DEVICE COMMENT RN LOREN; HHb 2.2; PO2, ARTERIAL BG 109.3 mmHg (83.0-108.0); VENT MODE, BG AC (ROOM AIR)
[2022-08-27] MEDS ORDERED: CALCIUM GLUC 1GM/10ML VIAL ONE ×2 (10:33→16:15)
[2022-08-27] MEDS: CALCIUM GLUC 1GM 1 GM in 0.9%NACL 50ML 50 ML IV PRN ×2 (10:35→16:15)
[2022-08-27 11:03] LABS: ALBUMIN 2.2 g/dL (3.5-5.0); BILIRUBIN,DIRECT 0.3 mg/dL (0.0-0.3); BILIRUBIN,TOTAL 1.1 mg/dL (0.2-1.0); TOTAL PROTEIN, SERUM 5.3 g/dL (6.0-8.3)
[2022-08-27 12:07] LABS: ABG BASE EXCESS 1.4 mmol/L (-2.0-3.0); ABG HCO3 24.8 mmol/L (21.0-28.0); ABG PCO2 35 mmHg (35-48); ABG PH 7.474 (7.35-7.450); CARBON MONOXIDE 0.2; DEVICE COMMENT RN LOREN; PO2, ARTERIAL BG 94.1 mmHg (83.0-108.0); VENT MODE, BG AC (ROOM AIR)
[2022-08-27 14:05] LABS: ABG BASE EXCESS 1.3 mmol/L (-2.0-3.0); ABG HCO3 24.9 mmol/L (21.0-28.0); ABG OXYGEN SATURATION 96.8 % (95.0-99.0); ABG PCO2 36 mmHg (35-48); CARBON MONOXIDE 0.2; HHb 3.2; VENT MODE, BG ac (ROOM AIR)
[2022-08-27] MEDS: PHENYLEPHRINE HCL 100 MG in 0.9% NACL 250ML 250 ML IV SCH (15:15)
[2022-08-27] MEDS: EPINEPHRINE PF 1MG (1:1,000) 10 MG in 0.9% NACL 250ML 240 ML IV PRN (15:16)
[2022-08-27 16:00] LABS: ABG BASE EXCESS -0.2 mmol/L (-2.0-3.0); ABG HCO3 22.9 mmol/L (21.0-28.0); ABG OXYGEN SATURATION 95.6 % (95.0-99.0); ABG PCO2 32 mmHg (35-48); CARBON MONOXIDE 0.1; HHb 4.4; PO2, ARTERIAL BG 81.9 mmHg (83.0-108.0); VENT MODE, BG ac (ROOM AIR)
[2022-08-27] MEDS: DEXMEDETOMIDINE 400MCG/NS100ML IV SCH ×2 (17:16→23:03)
[2022-08-27 18:13] LABS: ABG BASE EXCESS -1.2 mmol/L (-2.0-3.0); ABG HCO3 21.8 mmol/L (21.0-28.0); ABG OXYGEN SATURATION 96.3 % (95.0-99.0); ABG PCO2 31 mmHg (35-48); ABG PH 7.467 (7.35-7.450); CARBON MONOXIDE 0.1; DEVICE COMMENT aline; HHb 3.7; PO2, ARTERIAL BG 87.9 mmHg (83.0-108.0)
[2022-08-27 20:00] LABS: ABG BASE EXCESS -0.7 mmol/L (-2.0-3.0); ABG HCO3 22.1 mmol/L (21.0-28.0); ABG OXYGEN SATURATION 96.1 % (95.0-99.0); ABG PCO2 31 mmHg (35-48); ABG PH 7.477 (7.35-7.450); CARBON MONOXIDE 0.1; DEVICE COMMENT ALINE; HHb 3.9
[2022-08-27] MEDS: ATORVASTATIN 40 MG TABLET PO SCH (21:22)
[2022-08-27] MEDS: ACETAMINOPHEN 325 MG TAB PO PRN (21:23)
[2022-08-27 22:25] LABS: ABG BASE EXCESS -0.2 mmol/L (-2.0-3.0); ABG OXYGEN SATURATION 95.5 % (95.0-99.0); ABG PCO2 33 mmHg (35-48); ABG PH 7.468 (7.35-7.450); CARBON MONOXIDE 0.3; DEVICE COMMENT LINE; HHb 4.5; PO2, ARTERIAL BG 80.9 mmHg (83.0-108.0); VENT MODE, BG ACVC (ROOM AIR)
[2022-08-28] VITALS (69 sets, daily range): BP systolic 1–148; BP diastolic -20–91; PULSE 53–109; RESP 8–34; TEMP 99.7–101.3; O2SAT 91–100
[2022-08-28 00:06] LABS: ABG BASE EXCESS -1.7 mmol/L (-2.0-3.0); ABG HCO3 21.2 mmol/L (21.0-28.0); ABG OXYGEN SATURATION 96.4 % (95.0-99.0); ABG PCO2 30 mmHg (35-48); ABG PH 7.469 (7.35-7.450); CARBON MONOXIDE 0.3; HHb 3.6; PO2, ARTERIAL BG 90.6 mmHg (83.0-108.0); VENT MODE, BG AC (ROOM AIR)
[2022-08-28] MEDS: SODIUM BICARB 50MEQ 50ML VIAL IV PRN ×4 (00:22→22:22)
[2022-08-28] MEDS ORDERED: CALCIUM GLUC 1GM/10ML VIAL ONE ×2 (00:34→22:19)
[2022-08-28] MEDS: DEXMEDETOMIDINE 400MCG/NS100ML IV SCH ×3 (03:06→22:22)
[2022-08-28 04:16] LABS: ABG BASE EXCESS -0.3 mmol/L (-2.0-3.0); ABG HCO3 22.4 mmol/L (21.0-28.0); ABG OXYGEN SATURATION 96.9 % (95.0-99.0); ABG PCO2 31 mmHg (35-48); ABG PH 7.483 (7.35-7.450); CARBON MONOXIDE 0; HHb 3.1; VENT MODE, BG AC (ROOM AIR)
[2022-08-28 04:21] LABS: BASOPHILS # (AUTO) 0.02 K/uL (0.00-0.20); BASOPHILS % (AUTO) 0.2 % (0.0-5.0); HEMATOCRIT 31.3 % (42-54); IMMATURE GRANULOCYTE ABSOLUTE 0.06 K/uL (0-1); LYMPHOCYTES # (AUTO) 0.9 K/uL (1.0-4.8); MEAN CORPUSCULAR HEMOGLOBIN 32.8 pg (27.0-33.0); MEAN CORPUSCULAR HGB CONC 32.6 g/dL (32.0-36.0); MEAN CORPUSCULAR VOLUME 100.6 fL (79-99); MONOCYTES # (AUTO) 1.2 K/uL (0.1-1.0); MONOCYTES % (AUTO) 12.2 % (3.0-13.0); NEUTROPHILS # (AUTO) 7.6 K/uL (1.8-7.7); NUCLEATED RED BLOOD CELLS 0.5 % (0.0-0.19); PLATELET COUNT (AUTO) 78 K/uL (130-400); RED BLOOD CELL COUNT(AUTO) 3.11 MIL/uL (4.50-6.20); RED CELL DISTRIBUTION WIDTH 17.6 % (11.0-15.5); WHITE BLOOD COUNT (AUTO) 9.9 K/uL (4.8-10.8)
[2022-08-28 05:08] LABS: ALBUMIN 2.2 g/dL (3.5-5.0); BILIRUBIN,TOTAL 1.4 mg/dL (0.2-1.0); MAGNESIUM 2.6 mg/dL (1.80-2.40); POTASSIUM 5.7 mmol/L (3.5-5.1); TOTAL PROTEIN, SERUM 5.9 g/dL (6.0-8.3)
[2022-08-28 05:12] LABS: CREATININE 9.2 mg/dL (0.5-1.5)
[2022-08-28 06:44] LABS: ABG BASE EXCESS -0.4 mmol/L (-2.0-3.0); ABG HCO3 22.7 mmol/L (21.0-28.0); ABG OXYGEN SATURATION 96.7 % (95.0-99.0); ABG PCO2 32 mmHg (35-48); ABG PH 7.471 (7.35-7.450); CARBON MONOXIDE 0.1; HHb 3.3; PO2, ARTERIAL BG 94.9 mmHg (83.0-108.0)
[2022-08-28] MEDS: INSULIN HUMULIN R 100 UNIT/ML 3ML SQ SCH ×4 (07:30→23:38)
[2022-08-28] MEDS: SUCROFERRIC OXYHYDROXIDE 500 MG PO SCH ×3 (08:00→16:21)
[2022-08-28] MEDS: FERRIC CITRATE 1 GM PO SCH ×3 (08:00→16:21)
[2022-08-28] MEDS: DOCUSATE SODIUM 100 MG CAP PO SCH ×2 (08:51→20:55)
[2022-08-28] MEDS: GUAIFENESIN 600 MG TABLET.ER PO SCH ×2 (08:51→20:55)
[2022-08-28] MEDS: ASPIRIN 81 MG EC TAB PO SCH (08:51)
[2022-08-28] MEDS: MIDODRINE HCL 5 MG TABLET PO SCH ×3 (08:51→20:55)
[2022-08-28] MEDS: PANTOPRAZOLE 40 MG TAB DR PO SCH (08:51)
[2022-08-28] MEDS: HEPARIN 5,000 UNIT VIAL SQ SCH ×2 (08:52→21:01)
[2022-08-28] MEDS: PHENYLEPHRINE HCL 100 MG in 0.9% NACL 250ML 250 ML IV SCH (08:54)
[2022-08-28 10:18] LABS: ABG BASE EXCESS -1.1 mmol/L (-2.0-3.0); ABG HCO3 21.9 mmol/L (21.0-28.0); ABG OXYGEN SATURATION 95.9 % (95.0-99.0); ABG PCO2 31 mmHg (35-48); ABG PH 7.466 (7.35-7.450); CARBON MONOXIDE 0.1; DEVICE COMMENT RN LOREN; HHb 4.1; PO2, ARTERIAL BG 86.1 mmHg (83.0-108.0)
[2022-08-28] MEDS ORDERED: RENAL DOSE IV PRN (11:00)
[2022-08-28] MEDS ORDERED: 0.9%NACL 50ML IV SCH (11:00)
[2022-08-28] MEDS ORDERED: ZOSYN 3.375GM +NS 50ML IVPB SCH (12:00)
[2022-08-28] MEDS ORDERED: DIGOXIN 250 MCG/ML 2ML AMP IV SCH (13:00)
[2022-08-28 16:27] LABS: ABG BASE EXCESS -2.2 mmol/L (-2.0-3.0); ABG HCO3 20.8 mmol/L (21.0-28.0); ABG OXYGEN SATURATION 95.1 % (95.0-99.0); ABG PCO2 30 mmHg (35-48); ABG PH 7.459 (7.35-7.450); CARBON MONOXIDE 0.3; DEVICE COMMENT RN LOREN; HHb 4.9; PO2, ARTERIAL BG 81.1 mmHg (83.0-108.0); VENT MODE, BG AC (ROOM AIR)
[2022-08-28] MEDS ORDERED: EPINEPHRINE PF 1MG (1:1,000) 10 MG in 0.9% NACL 250ML 240 ML IV PRN (18:00)
[2022-08-28] MEDS: ATORVASTATIN 40 MG TABLET PO SCH (20:55)
[2022-08-28 22:00] LABS: ABG BASE EXCESS -5.1 mmol/L (-2.0-3.0); ABG HCO3 18.1 mmol/L (21.0-28.0); ABG OXYGEN SATURATION 96.6 % (95.0-99.0); ABG PCO2 28 mmHg (35-48); ABG PH 7.428 (7.35-7.450); CARBON MONOXIDE 0.3; HHb 3.4; PO2, ARTERIAL BG 93.5 mmHg (83.0-108.0)
[2022-08-29] VITALS (107 sets, daily range): BP systolic 64–161; BP diastolic 37–110; PULSE 55–130; RESP 9–38; TEMP 97.8–100; O2SAT 95–100
[2022-08-29] MEDS: ZOSYN 3.375GM +NS 50ML IVPB SCH ×3 (01:15→23:39)
[2022-08-29] MEDS ORDERED: PHARMACY COMMUNICATION MISC SCH (01:30)
[2022-08-29] MEDS ORDERED: LEVOFLOXACIN 500 MG/D5W 100 ML 100 ML IV SCH (02:00)
[2022-08-29] MEDS: DEXMEDETOMIDINE 400MCG/NS100ML IV SCH ×7 (03:04→23:38)
[2022-08-29 03:55] LABS: ABG BASE EXCESS -1.4 mmol/L (-2.0-3.0); ABG HCO3 21.8 mmol/L (21.0-28.0); ABG OXYGEN SATURATION 95.8 % (95.0-99.0); ABG PCO2 32 mmHg (35-48); ABG PH 7.452 (7.35-7.450); CARBON MONOXIDE 0.5; HHb 4.2; PO2, ARTERIAL BG 86.6 mmHg (83.0-108.0)
[2022-08-29 04:15] LABS: BASOPHILS # (AUTO) 0.03 K/uL (0.00-0.20); BASOPHILS % (AUTO) 0.3 % (0.0-5.0); EOSINOPHILS # (AUTO) 0.07 K/uL (0.00-0.70); EOSINOPHILS % (AUTO) 0.6 % (0.0-8.0); HEMATOCRIT 32.8 % (42-54); IMMATURE GRANULOCYTE ABSOLUTE 0.11 K/uL (0-1); LYMPHOCYTES # (AUTO) 0.6 K/uL (1.0-4.8); LYMPHOCYTES % (AUTO) 5.1 % (21.0-51.0); MEAN CORPUSCULAR HEMOGLOBIN 32.2 pg (27.0-33.0); MEAN CORPUSCULAR HGB CONC 32.3 g/dL (32.0-36.0); MEAN CORPUSCULAR VOLUME 99.7 fL (79-99); MONOCYTES # (AUTO) 1.2 K/uL (0.1-1.0); MONOCYTES % (AUTO) 10.2 % (3.0-13.0); NEUTROPHILS # (AUTO) 9.3 K/uL (1.8-7.7); NEUTROPHILS % (AUTO) 82.8 % (40.0-77.0); NUCLEATED RED BLOOD CELLS 0.3 % (0.0-0.19); PLATELET COUNT (AUTO) 94 K/uL (130-400); RED BLOOD CELL COUNT(AUTO) 3.29 MIL/uL (4.50-6.20); RED CELL DISTRIBUTION WIDTH 17.7 % (11.0-15.5); WHITE BLOOD COUNT (AUTO) 11.3 K/uL (4.8-10.8)
[2022-08-29 04:36] LABS: BILIRUBIN,TOTAL 1.7 mg/dL (0.2-1.0); MAGNESIUM 2.4 mg/dL (1.80-2.40); POTASSIUM 5.4 mmol/L (3.5-5.1); TOTAL PROTEIN, SERUM 5.7 g/dL (6.0-8.3)
[2022-08-29 05:35] LABS: CREATININE 10.3 mg/dL (0.5-1.5)
[2022-08-29] MEDS: INSULIN HUMULIN R 100 UNIT/ML 3ML SQ SCH ×3 (06:00→17:21)
[2022-08-29] MEDS: SUCROFERRIC OXYHYDROXIDE 500 MG PO SCH ×3 (08:00→17:00)
[2022-08-29] MEDS: FERRIC CITRATE 1 GM PO SCH ×3 (08:00→17:00)
[2022-08-29] MEDS ORDERED: AMIODARONE 150MG VIAL 150 MG in DEXTROSE 5%-WATER 100 ML IV SCH (08:30)
[2022-08-29] MEDS ORDERED: AMIODARONE 900MG VIAL 360 MG in DEXTROSE 5%-WATER 200 ML IV SCH (09:00)
[2022-08-29] MEDS ORDERED: AMIODARONE 900MG VIAL 540 MG in DEXTROSE 5%-WATER 300 ML IV SCH (09:00)
[2022-08-29] MEDS: DOCUSATE NA 100MG/10ML UDCUP PO SCH ×2 (10:23→20:21)
[2022-08-29] MEDS: ASPIRIN 81 MG EC TAB PO SCH (10:23)
[2022-08-29] MEDS: LACTULOSE 20 GM/30 ML UDCUP PO PRN ×2 (10:23→18:33)
[2022-08-29] MEDS: MIDODRINE HCL 5 MG TABLET PO SCH ×3 (10:23→20:21)
[2022-08-29] MEDS: HEPARIN 5,000 UNIT VIAL SQ SCH ×2 (10:24→20:22)
[2022-08-29] MEDS: GUAIFENESIN 600 MG TABLET.ER PO SCH ×2 (10:25→20:23)
[2022-08-29 11:35] LABS: ABG BASE EXCESS 0.9 mmol/L (-2.0-3.0); ABG HCO3 23.8 mmol/L (21.0-28.0); ABG OXYGEN SATURATION 96.2 % (95.0-99.0); ABG PCO2 33 mmHg (35-48); ABG PH 7.483 (7.35-7.450); CARBON MONOXIDE 0.4; HHb 3.8; VENT MODE, BG AC (ROOM AIR)
[2022-08-29] MEDS: CALCIUM GLUC 1GM 1 GM in 0.9%NACL 50ML 50 ML IV PRN ×2 (11:58→12:01)
[2022-08-29 16:58] LABS: ABG HCO3 23.4 mmol/L (21.0-28.0); ABG OXYGEN SATURATION 95.4 % (95.0-99.0); ABG PCO2 34 mmHg (35-48); ABG PH 7.454 (7.35-7.450); CARBON MONOXIDE 0.5; HHb 4.5; VENT MODE, BG AC (ROOM AIR)
[2022-08-29] MEDS ORDERED: CALCIUM GLUC 1GM 2 GM in 0.9%NACL 100ML 100 ML IV SCH (17:30)
[2022-08-29] MEDS: ATORVASTATIN 40 MG TABLET PO SCH (20:21)
[2022-08-29] MEDS: PHENYLEPHRINE HCL 100 MG in 0.9% NACL 250ML 250 ML IV SCH (23:38)
[2022-08-30] VITALS (76 sets, daily range): BP systolic 76–139; BP diastolic 33–70; PULSE 82–114; RESP 10–29; TEMP 98–98.9; O2SAT 95–100
[2022-08-30] MEDS: DEXMEDETOMIDINE 400MCG/NS100ML IV SCH ×3 (03:01→20:54)
[2022-08-30] MEDS: INSULIN HUMULIN R 100 UNIT/ML 3ML SQ SCH ×4 (05:11→18:00)
[2022-08-30 05:28] LABS: BASOPHILS # (AUTO) 0.02 K/uL (0.00-0.20); BASOPHILS % (AUTO) 0.2 % (0.0-5.0); EOSINOPHILS # (AUTO) 0.32 K/uL (0.00-0.70); EOSINOPHILS % (AUTO) 3.8 % (0.0-8.0); HEMATOCRIT 31.4 % (42-54); IMMATURE GRANULOCYTE ABSOLUTE 0.11 K/uL (0-1); LYMPHOCYTES # (AUTO) 0.7 K/uL (1.0-4.8); LYMPHOCYTES % (AUTO) 8.6 % (21.0-51.0); MEAN CORPUSCULAR HEMOGLOBIN 32.3 pg (27.0-33.0); MEAN CORPUSCULAR HGB CONC 32.2 g/dL (32.0-36.0); MEAN CORPUSCULAR VOLUME 100.3 fL (79-99); MONOCYTES # (AUTO) 0.8 K/uL (0.1-1.0); MONOCYTES % (AUTO) 9.4 % (3.0-13.0); NEUTROPHILS # (AUTO) 6.4 K/uL (1.8-7.7); NEUTROPHILS % (AUTO) 76.7 % (40.0-77.0); NUCLEATED RED BLOOD CELLS 0.7 % (0.0-0.19); PLATELET COUNT (AUTO) 52 K/uL (130-400); RED BLOOD CELL COUNT(AUTO) 3.13 MIL/uL (4.50-6.20); RED CELL DISTRIBUTION WIDTH 18.4 % (11.0-15.5); WHITE BLOOD COUNT (AUTO) 8.4 K/uL (4.8-10.8)
[2022-08-30 05:52] LABS: MAGNESIUM 2.1 mg/dL (1.80-2.40); POTASSIUM 4.5 mmol/L (3.5-5.1)
[2022-08-30 06:09] LABS: CREATININE 7.9 mg/dL (0.5-1.5)
[2022-08-30] MEDS: PANTOPRAZOLE 40 MG TAB DR PO SCH ×2 (06:28→08:53)
[2022-08-30 07:13] LABS: ABG HCO3 21.4 mmol/L (21.0-28.0); ABG OXYGEN SATURATION 96.8 % (95.0-99.0); ABG PCO2 32 mmHg (35-48); ABG PH 7.442 (7.35-7.450); CARBON MONOXIDE 0.5; HHb 3.2; PO2, ARTERIAL BG 92.7 mmHg (83.0-108.0); VENT MODE, BG AC (ROOM AIR)
[2022-08-30] MEDS: SODIUM BICARB 50MEQ 50ML VIAL IV PRN (07:28)
[2022-08-30] MEDS: FERRIC CITRATE 1 GM PO SCH ×3 (08:00→15:53)
[2022-08-30] MEDS: SUCROFERRIC OXYHYDROXIDE 500 MG PO SCH ×3 (08:00→15:52)
[2022-08-30] MEDS: GUAIFENESIN 600 MG TABLET.ER PO SCH ×2 (08:53→20:54)
[2022-08-30] MEDS: DOCUSATE NA 100MG/10ML UDCUP PO SCH ×2 (08:53→20:33)
[2022-08-30] MEDS: MIDODRINE HCL 5 MG TABLET PO SCH ×3 (08:54→20:54)
[2022-08-30] MEDS: HEPARIN 5,000 UNIT VIAL SQ SCH ×2 (08:54→20:56)
[2022-08-30] MEDS: AMIODARONE 200 MG TABLET PO SCH (08:54)
[2022-08-30] MEDS: ASPIRIN 81 MG EC TAB PO SCH (08:54)
[2022-08-30] MEDS ORDERED: MIDAZOLAM HCL 1 MG/ML 2ML VIAL ONE (09:54)
[2022-08-30] MEDS ORDERED: MIDAZOLAM HCL 1 MG/ML 2ML VIAL IVP ONE (10:30)
[2022-08-30] MEDS: PHENYLEPHRINE HCL 100 MG in 0.9% NACL 250ML 250 ML IV SCH ×3 (10:56→22:57)
[2022-08-30] MEDS: ZOSYN 3.375GM +NS 50ML IVPB SCH (15:56)
[2022-08-30] MEDS: ATORVASTATIN 40 MG TABLET PO SCH (20:54)
[2022-08-30] MEDS: BALSAM PERU/CASTOR OIL 60 GM TUBE TP SCH (20:57)
[2022-08-31] VITALS (77 sets, daily range): BP systolic 3–128; BP diastolic 2–107; PULSE 76–97; RESP 12–143; TEMP 96–98.8; O2SAT 93–99
[2022-08-31] MEDS: DEXMEDETOMIDINE 400MCG/NS100ML IV SCH ×2 (00:10→05:35)
[2022-08-31] MEDS: ZOSYN 3.375GM +NS 50ML IVPB SCH ×2 (00:48→16:50)
[2022-08-31] MEDS ORDERED: LEVOFLOXACIN 250 MG/D5W 50ML 50 ML IVPB SCH (02:00)
[2022-08-31] MEDS: PHENYLEPHRINE HCL 100 MG in 0.9% NACL 250ML 250 ML IV SCH ×2 (05:37→17:02)
[2022-08-31] MEDS: INSULIN HUMULIN R 100 UNIT/ML 3ML SQ SCH ×5 (06:00→23:18)
[2022-08-31 06:41] LABS: HEMATOCRIT 33.8 % (42-54); MEAN CORPUSCULAR HEMOGLOBIN 32.4 pg (27.0-33.0); MEAN CORPUSCULAR HGB CONC 32.2 g/dL (32.0-36.0); MEAN CORPUSCULAR VOLUME 100.6 fL (79-99); NUCLEATED RED BLOOD CELLS 0.5 % (0.0-0.19); RED BLOOD CELL COUNT(AUTO) 3.36 MIL/uL (4.50-6.20); RED CELL DISTRIBUTION WIDTH 18.9 % (11.0-15.5); WHITE BLOOD COUNT (AUTO) 12.2 K/uL (4.8-10.8)
[2022-08-31 06:46] LABS: POTASSIUM 5.4 mmol/L (3.5-5.1)
[2022-08-31 06:51] LABS: CREATININE 8.7 mg/dL (0.5-1.5)
[2022-08-31] MEDS: SUCROFERRIC OXYHYDROXIDE 500 MG PO SCH ×3 (08:00→17:00)
[2022-08-31] MEDS: FERRIC CITRATE 1 GM PO SCH ×3 (08:00→17:00)
[2022-08-31 08:07] LABS: ABG BASE EXCESS -3.2 mmol/L (-2.0-3.0); ABG HCO3 20.7 mmol/L (21.0-28.0); ABG OXYGEN SATURATION 93.6 % (95.0-99.0); ABG PCO2 34 mmHg (35-48); ABG PH 7.408 (7.35-7.450); CARBON MONOXIDE 0.6; CPAP, BG 5 cm H2O; HHb 6.3; PO2, ARTERIAL BG 74.5 mmHg (83.0-108.0); VENT MODE, BG CPAP PS10 (ROOM AIR)
[2022-08-31 09:45] LABS: ABG BASE EXCESS 0.1 mmol/L (-2.0-3.0); ABG HCO3 25.1 mmol/L (21.0-28.0); ABG OXYGEN SATURATION 99.5 % (95.0-99.0); ABG PCO2 42 mmHg (35-48); ABG PH 7.395 (7.35-7.450); CARBON MONOXIDE 0.3; DEVICE COMMENT 1; HHb 0.5; PO2, ARTERIAL BG 270.3 mmHg (83.0-108.0)
[2022-08-31 09:46] LABS: ABG BASE EXCESS 0.4 mmol/L (-2.0-3.0); ABG HCO3 21.9 mmol/L (21.0-28.0); ABG OXYGEN SATURATION 99.4 % (95.0-99.0); ABG PCO2 26 mmHg (35-48); CARBON MONOXIDE 0.3; DEVICE COMMENT 4; HHb 0.6; PO2, ARTERIAL BG 396.9 mmHg (83.0-108.0)
[2022-08-31 09:46] LABS: ABG BASE EXCESS 0.2 mmol/L (-2.0-3.0); ABG OXYGEN SATURATION 99.5 % (95.0-99.0); ABG PCO2 41 mmHg (35-48); ABG PH 7.403 (7.35-7.450); CARBON MONOXIDE 0.1; DEVICE COMMENT 2; HHb 0.5; PO2, ARTERIAL BG 362.7 mmHg (83.0-108.0)
[2022-08-31 09:46] LABS: ABG BASE EXCESS -2.5 mmol/L (-2.0-3.0); ABG HCO3 18.7 mmol/L (21.0-28.0); ABG OXYGEN SATURATION 99.3 % (95.0-99.0); ABG PCO2 22 mmHg (35-48); ABG PH 7.548 (7.35-7.450); CARBON MONOXIDE 0.3; DEVICE COMMENT 3; HHb 0.7; PO2, ARTERIAL BG 379.5 mmHg (83.0-108.0)
[2022-08-31 09:47] LABS: ABG BASE EXCESS -4.1 mmol/L (-2.0-3.0); ABG HCO3 19.4 mmol/L (21.0-28.0); ABG OXYGEN SATURATION 99.5 % (95.0-99.0); ABG PCO2 30 mmHg (35-48); ABG PH 7.428 (7.35-7.450); CARBON MONOXIDE 0.3; DEVICE COMMENT 5; HHb 0.5; PO2, ARTERIAL BG 397.7 mmHg (83.0-108.0)
[2022-08-31 11:03] LABS: ABG BASE EXCESS -3.3 mmol/L (-2.0-3.0); ABG HCO3 21.4 mmol/L (21.0-28.0); ABG OXYGEN SATURATION 92.2 % (95.0-99.0); ABG PCO2 37 mmHg (35-48); ABG PH 7.377 (7.35-7.450); CARBON MONOXIDE 0.6; HHb 7.7; PO2, ARTERIAL BG 70.6 mmHg (83.0-108.0); VENT MODE, BG CAFM (ROOM AIR)
[2022-08-31] MEDS: ASPIRIN 81 MG EC TAB PO SCH (11:39)
[2022-08-31] MEDS: MIDODRINE HCL 5 MG TABLET PO SCH ×3 (11:39→21:10)
[2022-08-31] MEDS: AMIODARONE 200 MG TABLET PO SCH (11:39)
[2022-08-31] MEDS: DOCUSATE NA 100MG/10ML UDCUP PO SCH ×2 (11:39→21:10)
[2022-08-31] MEDS: GUAIFENESIN 600 MG TABLET.ER PO SCH ×2 (11:39→21:11)
[2022-08-31] MEDS: BALSAM PERU/CASTOR OIL 60 GM TUBE TP SCH ×3 (11:42→21:13)
[2022-08-31] MEDS: HEPARIN 5,000 UNIT VIAL SQ SCH ×2 (11:46→21:11)
[2022-08-31] MEDS ORDERED: ALBUMIN (HUMAN) 25% 100 ML IV ONE (12:27)
[2022-08-31] MEDS ORDERED: ALBUMIN (HUMAN) 25% 100 ML IV PRN (12:30)
[2022-08-31] MEDS: CHLORHEXIDINE GLUCONATE 473 ML MOUTHWASH MM SCH ×2 (18:32→21:58)
[2022-08-31] MEDS: ATORVASTATIN 40 MG TABLET PO SCH (21:11)
[2022-08-31] MEDS: IPRATROPIUM 0.5 MG/2.5 ML INH IH SCH (22:00)
[2022-09-01] VITALS (112 sets, daily range): BP systolic 0–114; BP diastolic -1–68; PULSE 79–103; RESP 14–46; TEMP 97.2–97.6; O2SAT 94–99
[2022-09-01] MEDS: ZOSYN 3.375GM +NS 50ML IVPB SCH ×3 (00:58→23:37)
[2022-09-01] MEDS: CHLORHEXIDINE GLUCONATE 473 ML MOUTHWASH MM SCH ×4 (03:41→23:00)
[2022-09-01 04:31] LABS: BASOPHILS # (AUTO) 0.02 K/uL (0.00-0.20); BASOPHILS % (AUTO) 0.1 % (0.0-5.0); EOSINOPHILS # (AUTO) 0.13 K/uL (0.00-0.70); EOSINOPHILS % (AUTO) 0.9 % (0.0-8.0); HEMATOCRIT 31.3 % (42-54); LYMPHOCYTES # (AUTO) 0.7 K/uL (1.0-4.8); LYMPHOCYTES % (AUTO) 4.9 % (21.0-51.0); MEAN CORPUSCULAR HEMOGLOBIN 32.1 pg (27.0-33.0); MEAN CORPUSCULAR HGB CONC 31.6 g/dL (32.0-36.0); MEAN CORPUSCULAR VOLUME 101.6 fL (79-99); MONOCYTES # (AUTO) 0.9 K/uL (0.1-1.0); MONOCYTES % (AUTO) 6.7 % (3.0-13.0); NEUTROPHILS # (AUTO) 11.9 K/uL (1.8-7.7); NEUTROPHILS % (AUTO) 86.7 % (40.0-77.0); NUCLEATED RED BLOOD CELLS 0.3 % (0.0-0.19); PLATELET COUNT (AUTO) 41 K/uL (130-400); RED BLOOD CELL COUNT(AUTO) 3.08 MIL/uL (4.50-6.20); RED CELL DISTRIBUTION WIDTH 19.3 % (11.0-15.5); WHITE BLOOD COUNT (AUTO) 13.7 K/uL (4.8-10.8)
[2022-09-01 04:43] LABS: ALBUMIN 1.8 g/dL (3.5-5.0); BILIRUBIN,TOTAL 2.1 mg/dL (0.2-1.0); POTASSIUM 4.6 mmol/L (3.5-5.1); TOTAL PROTEIN, SERUM 5.4 g/dL (6.0-8.3)
[2022-09-01 05:34] LABS: ABG BASE EXCESS -3.7 mmol/L (-2.0-3.0); ABG HCO3 21.7 mmol/L (21.0-28.0); ABG OXYGEN SATURATION 97.9 % (95.0-99.0); ABG PCO2 41 mmHg (35-48); ABG PH 7.347 (7.35-7.450); CARBON MONOXIDE 0.2; HHb 2.1; PO2, ARTERIAL BG 117.6 mmHg (83.0-108.0)
[2022-09-01] MEDS ORDERED: CALCIUM GLUC 1GM/10ML VIAL ONE (05:48)
[2022-09-01] MEDS: CALCIUM GLUC 1GM 1 GM in 0.9%NACL 50ML 50 ML IV PRN ×2 (05:49→05:50)
[2022-09-01] MEDS: INSULIN HUMULIN R 100 UNIT/ML 3ML SQ SCH ×4 (05:52→20:49)
[2022-09-01] MEDS: IPRATROPIUM 0.5 MG/2.5 ML INH IH SCH ×3 (06:26→22:04)
[2022-09-01] MEDS: SUCROFERRIC OXYHYDROXIDE 500 MG PO SCH ×3 (08:00→14:26)
[2022-09-01] MEDS: FERRIC CITRATE 1 GM PO SCH ×3 (08:00→14:26)
[2022-09-01] MEDS: PANTOPRAZOLE 40 MG TAB DR PO SCH (08:29)
[2022-09-01] MEDS: DOCUSATE NA 100MG/10ML UDCUP PO SCH ×2 (08:29→20:49)
[2022-09-01] MEDS: ASPIRIN 81 MG EC TAB PO SCH (08:29)
[2022-09-01] MEDS: HEPARIN 5,000 UNIT VIAL SQ SCH ×2 (08:30→20:49)
[2022-09-01] MEDS: GUAIFENESIN 600 MG TABLET.ER PO SCH ×2 (08:30→20:49)
[2022-09-01] MEDS: MIDODRINE HCL 5 MG TABLET PO SCH ×3 (08:30→20:47)
[2022-09-01] MEDS: AMIODARONE 200 MG TABLET PO SCH (08:31)
[2022-09-01] MEDS: BALSAM PERU/CASTOR OIL 60 GM TUBE TP SCH ×3 (08:40→20:50)
[2022-09-01] MEDS: ACETAMINOPHEN 325 MG TAB PO PRN (08:45)
[2022-09-01] MEDS: PHENYLEPHRINE HCL 100 MG in 0.9% NACL 250ML 250 ML IV SCH ×3 (08:47→20:56)
[2022-09-01] MEDS: FLUDROCORTISONE ACETATE 0.1 MG TABLET PO SCH (11:16)
[2022-09-01] MEDS ORDERED: PHARMACY COMMUNICATION MISC SCH (11:30)
[2022-09-01] MEDS ORDERED: PHARMACY COMMUNICATION MISC STA (12:00)
[2022-09-01] MEDS ORDERED: LIDOCAINE HCL 1% 20 ML VIAL ONE (13:23)
[2022-09-01] MEDS ORDERED: LIDOCAINE HCL 1% 20 ML VIAL INJ SCH (15:00)
[2022-09-01] MEDS ORDERED: TRAMADOL HCL 50 MG TABLET PO SCH (20:00)
[2022-09-01] MEDS: ATORVASTATIN 40 MG TABLET PO SCH (20:49)
[2022-09-01] MEDS: TRAZODONE HCL 50 MG TAB PO PRN (20:49)
[2022-09-02] VITALS (129 sets, daily range): BP systolic 57–125; BP diastolic 18–90; PULSE 62–165; RESP 14–39; TEMP 97.7–97.9; O2SAT 92–100
[2022-09-02 04:11] LABS: BASOPHILS # (AUTO) 0.02 K/uL (0.00-0.20); BASOPHILS % (AUTO) 0.1 % (0.0-5.0); EOSINOPHILS % (AUTO) 0.7 % (0.0-8.0); HEMATOCRIT 28.3 % (42-54); IMMATURE GRANULOCYTE ABSOLUTE 0.11 K/uL (0-1); LYMPHOCYTES # (AUTO) 0.7 K/uL (1.0-4.8); MEAN CORPUSCULAR HEMOGLOBIN 32.6 pg (27.0-33.0); MEAN CORPUSCULAR HGB CONC 31.4 g/dL (32.0-36.0); MEAN CORPUSCULAR VOLUME 103.7 fL (79-99); MONOCYTES # (AUTO) 0.9 K/uL (0.1-1.0); NEUTROPHILS # (AUTO) 11.6 K/uL (1.8-7.7); NEUTROPHILS % (AUTO) 86.4 % (40.0-77.0); PLATELET COUNT (AUTO) 52 K/uL (130-400); RED BLOOD CELL COUNT(AUTO) 2.73 MIL/uL (4.50-6.20); RED CELL DISTRIBUTION WIDTH 19.8 % (11.0-15.5); WHITE BLOOD COUNT (AUTO) 13.5 K/uL (4.8-10.8)
[2022-09-02 04:36] LABS: ALBUMIN 1.6 g/dL (3.5-5.0); BILIRUBIN,TOTAL 1.5 mg/dL (0.2-1.0); POTASSIUM 4.4 mmol/L (3.5-5.1); TOTAL PROTEIN, SERUM 5.2 g/dL (6.0-8.3)
[2022-09-02] MEDS: ACETAMINOPHEN 325 MG TAB PO PRN (05:09)
[2022-09-02] MEDS: CHLORHEXIDINE GLUCONATE 473 ML MOUTHWASH MM SCH ×3 (05:11→17:58)
[2022-09-02 05:23] LABS: CREATININE 8.1 mg/dL (0.5-1.5)
[2022-09-02] MEDS: INSULIN HUMULIN R 100 UNIT/ML 3ML SQ SCH ×4 (06:00→20:10)
[2022-09-02] MEDS: IPRATROPIUM 0.5 MG/2.5 ML INH IH SCH ×3 (06:16→18:42)
[2022-09-02] MEDS: PHENYLEPHRINE HCL 100 MG in 0.9% NACL 250ML 250 ML IV SCH ×3 (07:38→20:50)
[2022-09-02] MEDS: SUCROFERRIC OXYHYDROXIDE 500 MG PO SCH ×3 (08:00→17:00)
[2022-09-02] MEDS: FERRIC CITRATE 1 GM PO SCH ×3 (08:00→17:00)
[2022-09-02] MEDS: ASPIRIN 81 MG EC TAB PO SCH (09:06)
[2022-09-02] MEDS: GUAIFENESIN 600 MG TABLET.ER PO SCH ×2 (09:07→20:09)
[2022-09-02] MEDS: DOCUSATE NA 100MG/10ML UDCUP PO SCH ×2 (09:07→20:09)
[2022-09-02] MEDS: AMIODARONE 200 MG TABLET PO SCH (09:07)
[2022-09-02] MEDS: FLUDROCORTISONE ACETATE 0.1 MG TABLET PO SCH (09:07)
[2022-09-02] MEDS: MIDODRINE HCL 5 MG TABLET PO SCH ×3 (09:07→20:09)
[2022-09-02] MEDS: BALSAM PERU/CASTOR OIL 60 GM TUBE TP SCH ×3 (09:09→20:10)
[2022-09-02] MEDS: HEPARIN 5,000 UNIT VIAL SQ SCH ×2 (09:09→20:10)
[2022-09-02] MEDS ORDERED: HEPARIN 5,000 UNIT VIAL IJ SCH (10:00)
[2022-09-02] MEDS ORDERED: ALBUMIN (HUMAN) 25% 100 ML IV PRN (10:30)
[2022-09-02 11:30] LABS: INR 1.49 (0.85-1.15); PROTHROMBIN TIME 16.8 SEC (9.6-11.6)
[2022-09-02 11:32] LABS: PARTIAL THROMBOPLASTIN TIME 43.5 SEC (26.3-35.5)
[2022-09-02] MEDS: DILTIAZEM 125MG+100 ML NS 125 ML IV PRN ×2 (13:15→22:38)
[2022-09-02] MEDS ORDERED: DILTIAZEM 25MG INJ IVP ONE (15:00)
[2022-09-02 16:25] LABS: ABG BASE EXCESS -1.2 mmol/L (-2.0-3.0); ABG HCO3 24.1 mmol/L (21.0-28.0); ABG OXYGEN SATURATION 73.4 % (95.0-99.0); ABG PCO2 43 mmHg (35-48); ABG PH 7.368 (7.35-7.450); CARBON MONOXIDE 0.4; DEVICE COMMENT RR; HHb 26.4; PO2, ARTERIAL BG < 45.0 mmHg (83.0-108.0); VENT MODE, BG NC (ROOM AIR)
[2022-09-02 16:36] LABS: ABG BASE EXCESS -3.6 mmol/L (-2.0-3.0); ABG HCO3 20.7 mmol/L (21.0-28.0); ABG OXYGEN SATURATION 91.4 % (95.0-99.0); ABG PCO2 35 mmHg (35-48); ABG PH 7.394 (7.35-7.450); CARBON MONOXIDE 0.1; DEVICE COMMENT RR; HHb 8.5; PO2, ARTERIAL BG 65.8 mmHg (83.0-108.0); VENT MODE, BG NC (ROOM AIR)
[2022-09-02] MEDS: ZOSYN 3.375GM +NS 50ML IVPB SCH (17:53)
[2022-09-02] MEDS: EPOETIN ALFA-EPBX (NON-ESRD) 10,000 UNIT/ML VIAL SQ SCH (17:58)
[2022-09-02] MEDS: ATORVASTATIN 40 MG TABLET PO SCH (20:09)
[2022-09-02] MEDS: TRAZODONE HCL 50 MG TAB PO PRN (20:09)
[2022-09-02] MEDS ORDERED: TRAMADOL HCL 50 MG TABLET PO SCH (21:00)
[2022-09-03] VITALS (115 sets, daily range): BP systolic 67–131; BP diastolic 29–92; PULSE 84–122; RESP 15–37; O2SAT 95–100
[2022-09-03] MEDS: ZOSYN 3.375GM +NS 50ML IVPB SCH ×2 (00:49→13:09)
[2022-09-03] MEDS: PHENYLEPHRINE HCL 100 MG in 0.9% NACL 250ML 250 ML IV SCH ×3 (02:08→15:58)
[2022-09-03 05:01] LABS: BASOPHILS # (AUTO) 0.03 K/uL (0.00-0.20); BASOPHILS % (AUTO) 0.3 % (0.0-5.0); EOSINOPHILS # (AUTO) 0.12 K/uL (0.00-0.70); HEMATOCRIT 28.3 % (42-54); IMMATURE GRANULOCYTE ABSOLUTE 0.11 K/uL (0-1); LYMPHOCYTES # (AUTO) 0.6 K/uL (1.0-4.8); MEAN CORPUSCULAR HEMOGLOBIN 32.5 pg (27.0-33.0); MEAN CORPUSCULAR HGB CONC 31.4 g/dL (32.0-36.0); MEAN CORPUSCULAR VOLUME 103.3 fL (79-99); MONOCYTES % (AUTO) 8.9 % (3.0-13.0); NEUTROPHILS # (AUTO) 9.6 K/uL (1.8-7.7); NEUTROPHILS % (AUTO) 83.8 % (40.0-77.0); PLATELET COUNT (AUTO) 72 K/uL (130-400); RED BLOOD CELL COUNT(AUTO) 2.74 MIL/uL (4.50-6.20); RED CELL DISTRIBUTION WIDTH 20.5 % (11.0-15.5); WHITE BLOOD COUNT (AUTO) 11.5 K/uL (4.8-10.8)
[2022-09-03 05:15] LABS: ALBUMIN 1.8 g/dL (3.5-5.0); BILIRUBIN,TOTAL 1.6 mg/dL (0.2-1.0); CREATININE 6.4 mg/dL (0.5-1.5); MAGNESIUM 2.1 mg/dL (1.80-2.40); PHOSPHORUS 5.6 mg/dL (2.5-4.9); POTASSIUM 4.1 mmol/L (3.5-5.1); TOTAL PROTEIN, SERUM 5.6 g/dL (6.0-8.3)
[2022-09-03] MEDS: INSULIN HUMULIN R 100 UNIT/ML 3ML SQ SCH ×3 (05:49→17:42)
[2022-09-03] MEDS: IPRATROPIUM 0.5 MG/2.5 ML INH IH SCH ×3 (06:18→21:14)
[2022-09-03] MEDS: DILTIAZEM 125MG+100 ML NS 125 ML IV PRN ×2 (06:22→18:40)
[2022-09-03] MEDS: SUCROFERRIC OXYHYDROXIDE 500 MG PO SCH ×3 (07:37→16:30)
[2022-09-03] MEDS: DOCUSATE NA 100MG/10ML UDCUP PO SCH ×2 (07:37→20:22)
[2022-09-03] MEDS: FERRIC CITRATE 1 GM PO SCH ×3 (07:37→16:30)
[2022-09-03] MEDS: PANTOPRAZOLE 40 MG TAB DR PO SCH (07:51)
[2022-09-03] MEDS: 0.9%NACL 10ML VIAL IV SCH ×2 (07:51→20:21)
[2022-09-03] MEDS: GUAIFENESIN 600 MG TABLET.ER PO SCH ×2 (07:52→20:22)
[2022-09-03] MEDS: MIDODRINE HCL 5 MG TABLET PO SCH ×3 (07:52→20:24)
[2022-09-03] MEDS: AMIODARONE 200 MG TABLET PO SCH (07:52)
[2022-09-03] MEDS: ASPIRIN 81 MG EC TAB PO SCH (07:52)
[2022-09-03] MEDS: FLUDROCORTISONE ACETATE 0.1 MG TABLET PO SCH (07:52)
[2022-09-03] MEDS: BALSAM PERU/CASTOR OIL 60 GM TUBE TP SCH ×3 (07:53→20:26)
[2022-09-03] MEDS: HEPARIN 5,000 UNIT VIAL SQ SCH ×2 (07:54→20:26)
[2022-09-03] MEDS ORDERED: DIGOXIN 250 MCG/ML 2ML AMP IV SCH (19:00)
[2022-09-03] MEDS: DILTIAZEM 180MG SR CAP PO SCH (20:22)
[2022-09-03] MEDS: ATORVASTATIN 40 MG TABLET PO SCH (20:22)
[2022-09-03 21:28] LABS: ABG BASE EXCESS -4.2 mmol/L (-2.0-3.0); ABG HCO3 20.8 mmol/L (21.0-28.0); ABG OXYGEN SATURATION 95.4 % (95.0-99.0); ABG PCO2 38 mmHg (35-48); ABG PH 7.355 (7.35-7.450); PO2, ARTERIAL BG 79.7 mmHg (83.0-108.0); VENT MODE, BG BIPAP 10-5 (ROOM AIR)
[2022-09-04] VITALS (130 sets, daily range): BP systolic 60–170; BP diastolic 23–109; PULSE 68–109; RESP 18–58; O2SAT 94–99
[2022-09-04] MEDS: ZOSYN 3.375GM +NS 50ML IVPB SCH ×2 (00:32→12:52)
[2022-09-04] MEDS: INSULIN HUMULIN R 100 UNIT/ML 3ML SQ SCH ×5 (05:03→22:44)
[2022-09-04 05:22] LABS: BASOPHILS # (AUTO) 0.01 K/uL (0.00-0.20); BASOPHILS % (AUTO) 0.1 % (0.0-5.0); EOSINOPHILS # (AUTO) 0.13 K/uL (0.00-0.70); EOSINOPHILS % (AUTO) 1.3 % (0.0-8.0); HEMATOCRIT 24.6 % (42-54); IMMATURE GRANULOCYTE ABSOLUTE 0.13 K/uL (0-1); LYMPHOCYTES # (AUTO) 0.6 K/uL (1.0-4.8); LYMPHOCYTES % (AUTO) 5.7 % (21.0-51.0); MEAN CORPUSCULAR HEMOGLOBIN 32.2 pg (27.0-33.0); MEAN CORPUSCULAR HGB CONC 31.7 g/dL (32.0-36.0); MEAN CORPUSCULAR VOLUME 101.7 fL (79-99); MONOCYTES # (AUTO) 1.1 K/uL (0.1-1.0); MONOCYTES % (AUTO) 10.6 % (3.0-13.0); NEUTROPHILS # (AUTO) 8.2 K/uL (1.8-7.7); PLATELET COUNT (AUTO) 73 K/uL (130-400); RED BLOOD CELL COUNT(AUTO) 2.42 MIL/uL (4.50-6.20); RED CELL DISTRIBUTION WIDTH 20.6 % (11.0-15.5); WHITE BLOOD COUNT (AUTO) 10.1 K/uL (4.8-10.8)
[2022-09-04 05:48] LABS: ALBUMIN 1.7 g/dL (3.5-5.0); BILIRUBIN,TOTAL 1.5 mg/dL (0.2-1.0); CREATININE 7.3 mg/dL (0.5-1.5); TOTAL PROTEIN, SERUM 5.5 g/dL (6.0-8.3)
[2022-09-04] MEDS: IPRATROPIUM 0.5 MG/2.5 ML INH IH SCH ×2 (06:48→14:37)
[2022-09-04 07:33] LABS: ABG BASE EXCESS -3.8 mmol/L (-2.0-3.0); ABG HCO3 21.4 mmol/L (21.0-28.0); ABG OXYGEN SATURATION 67.3 % (95.0-99.0); ABG PCO2 39 mmHg (35-48); ABG PH 7.354 (7.35-7.450); DEVICE COMMENT RR; PO2, ARTERIAL BG < 45.0 mmHg (83.0-108.0); VENT MODE, BG NC (ROOM AIR)
[2022-09-04] MEDS: SUCROFERRIC OXYHYDROXIDE 500 MG PO SCH ×3 (08:00→17:00)
[2022-09-04] MEDS: FERRIC CITRATE 1 GM PO SCH ×3 (08:00→17:00)
[2022-09-04] MEDS: DOCUSATE NA 100MG/10ML UDCUP PO SCH ×2 (08:15→22:19)
[2022-09-04] MEDS: AMIODARONE 200 MG TABLET PO SCH (08:16)
[2022-09-04] MEDS: 0.9%NACL 10ML VIAL IV SCH ×2 (08:16→22:22)
[2022-09-04] MEDS: FLUDROCORTISONE ACETATE 0.1 MG TABLET PO SCH (08:16)
[2022-09-04] MEDS: ASPIRIN 81 MG EC TAB PO SCH (08:16)
[2022-09-04] MEDS: PANTOPRAZOLE 40 MG TAB DR PO SCH (08:16)
[2022-09-04] MEDS: GUAIFENESIN 600 MG TABLET.ER PO SCH ×2 (08:17→22:19)
[2022-09-04] MEDS: DILTIAZEM 180MG SR CAP PO SCH ×2 (08:17→22:20)
[2022-09-04] MEDS: DIGOXIN 125 MCG TABLET PO SCH (08:17)
[2022-09-04] MEDS: MIDODRINE HCL 5 MG TABLET PO SCH ×3 (08:17→22:19)
[2022-09-04] MEDS: HEPARIN 5,000 UNIT VIAL SQ SCH ×2 (08:27→21:00)
[2022-09-04] MEDS: BALSAM PERU/CASTOR OIL 60 GM TUBE TP SCH ×3 (08:33→22:23)
[2022-09-04] MEDS ORDERED: AMIODARONE 200 MG TABLET PO SCH (09:00)
[2022-09-04] MEDS: PHENYLEPHRINE HCL 100 MG in 0.9% NACL 250ML 250 ML IV SCH (21:48)
[2022-09-04] MEDS: ATORVASTATIN 40 MG TABLET PO SCH (22:20)
[2022-09-05] VITALS (113 sets, daily range): BP systolic 74–145; BP diastolic 26–115; PULSE 60–114; RESP 20–100; TEMP 97.7–98.2; O2SAT 92–99
[2022-09-05] MEDS: ZOSYN 3.375GM +NS 50ML IVPB SCH ×2 (01:01→13:49)
[2022-09-05] MEDS: TRAZODONE HCL 50 MG TAB PO PRN (01:57)
[2022-09-05] MEDS ORDERED: PHARMACY COMMUNICATION MISC SCH (03:30)
[2022-09-05 05:59] LABS: BASOPHILS # (AUTO) 0.02 K/uL (0.00-0.20); BASOPHILS % (AUTO) 0.2 % (0.0-5.0); EOSINOPHILS % (AUTO) 1.9 % (0.0-8.0); HEMATOCRIT 23.2 % (42-54); IMMATURE GRANULOCYTE ABSOLUTE 0.21 K/uL (0-1); LYMPHOCYTES # (AUTO) 0.8 K/uL (1.0-4.8); LYMPHOCYTES % (AUTO) 7.1 % (21.0-51.0); MEAN CORPUSCULAR HEMOGLOBIN 32.4 pg (27.0-33.0); MEAN CORPUSCULAR HGB CONC 31.5 g/dL (32.0-36.0); MEAN CORPUSCULAR VOLUME 103.1 fL (79-99); MONOCYTES # (AUTO) 1.2 K/uL (0.1-1.0); MONOCYTES % (AUTO) 11.3 % (3.0-13.0); NEUTROPHILS # (AUTO) 8.1 K/uL (1.8-7.7); NEUTROPHILS % (AUTO) 77.5 % (40.0-77.0); PLATELET COUNT (AUTO) 97 K/uL (130-400); RED BLOOD CELL COUNT(AUTO) 2.25 MIL/uL (4.50-6.20); RED CELL DISTRIBUTION WIDTH 20.5 % (11.0-15.5); WHITE BLOOD COUNT (AUTO) 10.5 K/uL (4.8-10.8)
[2022-09-05] MEDS: INSULIN HUMULIN R 100 UNIT/ML 3ML SQ SCH ×3 (06:07→17:23)
[2022-09-05 06:12] LABS: ALBUMIN 1.7 g/dL (3.5-5.0); BILIRUBIN,TOTAL 1.5 mg/dL (0.2-1.0); POTASSIUM 4.2 mmol/L (3.5-5.1); TOTAL PROTEIN, SERUM 5.7 g/dL (6.0-8.3)
[2022-09-05 06:14] LABS: CREATININE 7.9 mg/dL (0.5-1.5)
[2022-09-05] MEDS: IPRATROPIUM 0.5 MG/2.5 ML INH IH SCH ×3 (07:12→22:05)
[2022-09-05] MEDS: SUCROFERRIC OXYHYDROXIDE 500 MG PO SCH ×3 (08:00→17:00)
[2022-09-05] MEDS: GUAIFENESIN 600 MG TABLET.ER PO SCH ×2 (09:50→20:25)
[2022-09-05] MEDS: 0.9%NACL 10ML VIAL IV SCH (09:50)
[2022-09-05] MEDS: AMIODARONE 200 MG TABLET PO SCH (09:50)
[2022-09-05] MEDS: FLUDROCORTISONE ACETATE 0.1 MG TABLET PO SCH (09:50)
[2022-09-05] MEDS: DILTIAZEM 180MG SR CAP PO SCH ×2 (09:50→20:26)
[2022-09-05] MEDS: DOCUSATE NA 100MG/10ML UDCUP PO SCH ×2 (09:50→20:26)
[2022-09-05] MEDS: MIDODRINE HCL 5 MG TABLET PO SCH ×3 (09:51→20:25)
[2022-09-05] MEDS: ASPIRIN 81 MG EC TAB PO SCH (09:51)
[2022-09-05] MEDS: BALSAM PERU/CASTOR OIL 60 GM TUBE TP SCH ×3 (09:51→21:00)
[2022-09-05] MEDS: DIGOXIN 125 MCG TABLET PO SCH (09:51)
[2022-09-05] MEDS: HEPARIN 5,000 UNIT VIAL SQ SCH ×2 (09:53→20:25)
[2022-09-05] MEDS: FERRIC CITRATE 1 GM PO SCH ×3 (10:00→17:00)
[2022-09-05] MEDS ORDERED: ALBUMIN (HUMAN) 25% 100 ML IV ONE (14:14)
[2022-09-05] MEDS: EPOETIN ALFA-EPBX (NON-ESRD) 10,000 UNIT/ML VIAL SQ SCH (17:23)
[2022-09-05] MEDS ORDERED: FUROSEMIDE 100MG VIAL IVP ONE (17:30)
[2022-09-05] MEDS: ALBUMIN (HUMAN) 25% 100 ML IV PRN (17:31)
[2022-09-05] MEDS: ATORVASTATIN 40 MG TABLET PO SCH (20:25)
[2022-09-06] VITALS (111 sets, daily range): BP systolic 68–180; BP diastolic 33–93; PULSE 56–115; RESP 9–68; TEMP 99.2–99.5; O2SAT 91–99
[2022-09-06] MEDS: 0.9%NACL 10ML VIAL IV SCH ×2 (01:16→09:52)
[2022-09-06] MEDS: ZOSYN 3.375GM +NS 50ML IVPB SCH ×2 (01:16→12:57)
[2022-09-06] MEDS: INSULIN HUMULIN R 100 UNIT/ML 3ML SQ SCH ×4 (06:00→18:02)
[2022-09-06] MEDS: PHENYLEPHRINE HCL 100 MG in 0.9% NACL 250ML 250 ML IV SCH ×2 (06:25→20:14)
[2022-09-06] MEDS: IPRATROPIUM 0.5 MG/2.5 ML INH IH SCH ×3 (06:41→22:51)
[2022-09-06 07:00] LABS: BASOPHILS # (AUTO) 0.02 K/uL (0.00-0.20); BASOPHILS % (AUTO) 0.2 % (0.0-5.0); EOSINOPHILS # (AUTO) 0.14 K/uL (0.00-0.70); EOSINOPHILS % (AUTO) 1.2 % (0.0-8.0); HEMATOCRIT 23.2 % (42-54); IMMATURE GRANULOCYTE ABSOLUTE 0.26 K/uL (0-1); LYMPHOCYTES # (AUTO) 0.7 K/uL (1.0-4.8); LYMPHOCYTES % (AUTO) 6.2 % (21.0-51.0); MEAN CORPUSCULAR HEMOGLOBIN 32.4 pg (27.0-33.0); MEAN CORPUSCULAR HGB CONC 31.5 g/dL (32.0-36.0); MEAN CORPUSCULAR VOLUME 103.1 fL (79-99); MONOCYTES # (AUTO) 1.2 K/uL (0.1-1.0); MONOCYTES % (AUTO) 10.2 % (3.0-13.0); NEUTROPHILS # (AUTO) 9.4 K/uL (1.8-7.7); NUCLEATED RED BLOOD CELLS 0.4 % (0.0-0.19); PLATELET COUNT (AUTO) 132 K/uL (130-400); RED BLOOD CELL COUNT(AUTO) 2.25 MIL/uL (4.50-6.20); RED CELL DISTRIBUTION WIDTH 21.3 % (11.0-15.5); WHITE BLOOD COUNT (AUTO) 11.8 K/uL (4.8-10.8)
[2022-09-06 07:27] LABS: ALBUMIN 1.9 g/dL (3.5-5.0); BILIRUBIN,TOTAL 1.7 mg/dL (0.2-1.0); CREATININE 6.9 mg/dL (0.5-1.5); POTASSIUM 3.7 mmol/L (3.5-5.1); TOTAL PROTEIN, SERUM 6.2 g/dL (6.0-8.3)
[2022-09-06 07:50] LABS: DIGOXIN 0.88 ng/mL (0.50-2.00)
[2022-09-06] MEDS: FERRIC CITRATE 1 GM PO SCH ×3 (08:00→17:00)
[2022-09-06] MEDS: SUCROFERRIC OXYHYDROXIDE 500 MG PO SCH ×3 (08:00→17:00)
[2022-09-06] MEDS: DOCUSATE NA 100MG/10ML UDCUP PO SCH ×2 (09:20→21:00)
[2022-09-06] MEDS: DILTIAZEM 180MG SR CAP PO SCH ×2 (09:21→20:39)
[2022-09-06] MEDS: GUAIFENESIN 600 MG TABLET.ER PO SCH ×2 (09:22→20:39)
[2022-09-06] MEDS: ASPIRIN 81 MG EC TAB PO SCH (09:22)
[2022-09-06] MEDS: MIDODRINE HCL 5 MG TABLET PO SCH ×3 (09:22→20:39)
[2022-09-06] MEDS: AMIODARONE 200 MG TABLET PO SCH (09:22)
[2022-09-06] MEDS: DIGOXIN 125 MCG TABLET PO SCH (09:22)
[2022-09-06] MEDS: FLUDROCORTISONE ACETATE 0.1 MG TABLET PO SCH (09:22)
[2022-09-06] MEDS: HEPARIN 5,000 UNIT VIAL SQ SCH ×2 (09:27→20:46)
[2022-09-06] MEDS: BALSAM PERU/CASTOR OIL 60 GM TUBE TP SCH ×2 (09:53→14:34)
[2022-09-06] MEDS: ALBUMIN (HUMAN) 25% 100 ML IV PRN (11:39)
[2022-09-06] MEDS: ATORVASTATIN 40 MG TABLET PO SCH (20:39)
[2022-09-06] MEDS: TRAZODONE HCL 50 MG TAB PO PRN (20:50)
[2022-09-06] MEDS: ACETAMINOPHEN 325 MG TAB PO PRN (20:51)
[2022-09-07] VITALS (95 sets, daily range): BP systolic 73–150; BP diastolic 31–116; PULSE 52–96; RESP 14–32; TEMP 98.2–98.9; O2SAT 88–100
[2022-09-07] MEDS: ZOSYN 3.375GM +NS 50ML IVPB SCH ×2 (01:08→13:35)
[2022-09-07] MEDS: INSULIN HUMULIN R 100 UNIT/ML 3ML SQ SCH ×4 (01:10→17:13)
[2022-09-07] MEDS: IPRATROPIUM 0.5 MG/2.5 ML INH IH SCH ×3 (06:19→22:36)
[2022-09-07] MEDS: PHENYLEPHRINE HCL 100 MG in 0.9% NACL 250ML 250 ML IV SCH ×3 (06:31→16:52)
[2022-09-07] MEDS: 0.9%NACL 10ML VIAL IV SCH ×3 (06:32→21:33)
[2022-09-07] MEDS: BALSAM PERU/CASTOR OIL 60 GM TUBE TP SCH ×4 (06:33→21:35)
[2022-09-07 06:56] LABS: HEMATOCRIT 21.3 % (42-54); MEAN CORPUSCULAR HEMOGLOBIN 32.3 pg (27.0-33.0); MEAN CORPUSCULAR HGB CONC 30.5 g/dL (32.0-36.0); NUCLEATED RED BLOOD CELLS 0.8 % (0.0-0.19); RED BLOOD CELL COUNT(AUTO) 2.01 MIL/uL (4.50-6.20); RED CELL DISTRIBUTION WIDTH 20.9 % (11.0-15.5); WHITE BLOOD COUNT (AUTO) 14.3 K/uL (4.8-10.8)
[2022-09-07 07:06] LABS: CREATININE 6.5 mg/dL (0.5-1.5); MAGNESIUM 1.9 mg/dL (1.80-2.40); POTASSIUM 3.2 mmol/L (3.5-5.1)
[2022-09-07] MEDS: PANTOPRAZOLE 40 MG TAB DR PO SCH (07:14)
[2022-09-07] MEDS: FERRIC CITRATE 1 GM PO SCH ×3 (08:00→17:05)
[2022-09-07] MEDS: SUCROFERRIC OXYHYDROXIDE 500 MG PO SCH ×3 (08:00→17:04)
[2022-09-07 08:05] LABS: HEMATOCRIT 22.1 % (42-54)
[2022-09-07] MEDS: DOCUSATE NA 100MG/10ML UDCUP PO SCH ×2 (08:20→21:33)
[2022-09-07] MEDS: DILTIAZEM 180MG SR CAP PO SCH ×2 (08:20→21:28)
[2022-09-07] MEDS: AMIODARONE 200 MG TABLET PO SCH (08:21)
[2022-09-07] MEDS: DIGOXIN 125 MCG TABLET PO SCH (08:21)
[2022-09-07] MEDS: HEPARIN 5,000 UNIT VIAL SQ SCH ×2 (09:13→21:32)
[2022-09-07] MEDS: MIDODRINE HCL 5 MG TABLET PO SCH ×3 (09:14→21:30)
[2022-09-07] MEDS: FLUDROCORTISONE ACETATE 0.1 MG TABLET PO SCH (09:14)
[2022-09-07] MEDS: ASPIRIN 81 MG EC TAB PO SCH (09:15)
[2022-09-07] MEDS: GUAIFENESIN 600 MG TABLET.ER PO SCH ×2 (09:15→21:31)
[2022-09-07] MEDS: EPOETIN ALFA-EPBX (NON-ESRD) 10,000 UNIT/ML VIAL SQ SCH (16:50)
[2022-09-07 21:19] LABS: HEPATITIS B SURFACE ANTIGEN Non-Reactive (Nonreactive)
[2022-09-07] MEDS: ATORVASTATIN 40 MG TABLET PO SCH (21:31)
[2022-09-08] VITALS (97 sets, daily range): BP systolic 72–173; BP diastolic 33–115; PULSE 57–107; RESP 8–33; TEMP 97.6–97.7; O2SAT 85–100
[2022-09-08] MEDS: ZOSYN 3.375GM +NS 50ML IVPB SCH ×2 (00:44→12:00)
[2022-09-08] MEDS: ACETAMINOPHEN 325 MG TAB PO PRN (00:45)
[2022-09-08] MEDS: PHENYLEPHRINE HCL 100 MG in 0.9% NACL 250ML 250 ML IV SCH (03:47)
[2022-09-08 04:46] LABS: CREATININE 5.8 mg/dL (0.5-1.5); MAGNESIUM 1.7 mg/dL (1.80-2.40); POTASSIUM 3.1 mmol/L (3.5-5.1)
[2022-09-08] MEDS: IPRATROPIUM 0.5 MG/2.5 ML INH IH SCH ×3 (06:12→22:42)
[2022-09-08] MEDS: POTASSIUM CHLORIDE 20MEQ/100ML 100 ML IV PRN (06:27)
[2022-09-08] MEDS: INSULIN HUMULIN R 100 UNIT/ML 3ML SQ SCH ×4 (06:32→16:37)
[2022-09-08 06:37] LABS: HEMATOCRIT 23.1 % (42-54); MEAN CORPUSCULAR HEMOGLOBIN 32.6 pg (27.0-33.0); MEAN CORPUSCULAR HGB CONC 32.9 g/dL (32.0-36.0); MEAN CORPUSCULAR VOLUME 99.1 fL (79-99); NUCLEATED RED BLOOD CELLS 1.1 % (0.0-0.19); RED BLOOD CELL COUNT(AUTO) 2.33 MIL/uL (4.50-6.20); RED CELL DISTRIBUTION WIDTH 21.2 % (11.0-15.5); WHITE BLOOD COUNT (AUTO) 15.1 K/uL (4.8-10.8)
[2022-09-08] MEDS: FERRIC CITRATE 1 GM PO SCH ×3 (08:01→16:34)
[2022-09-08] MEDS: 0.9%NACL 10ML VIAL IV SCH ×2 (08:02→20:33)
[2022-09-08] MEDS: SUCROFERRIC OXYHYDROXIDE 500 MG PO SCH ×3 (08:02→16:35)
[2022-09-08] MEDS: FLUDROCORTISONE ACETATE 0.1 MG TABLET PO SCH (08:02)
[2022-09-08] MEDS: DOCUSATE NA 100MG/10ML UDCUP PO SCH ×2 (08:03→20:33)
[2022-09-08] MEDS: GUAIFENESIN 600 MG TABLET.ER PO SCH ×2 (08:03→20:33)
[2022-09-08] MEDS: ASPIRIN 81 MG EC TAB PO SCH (08:03)
[2022-09-08] MEDS: BALSAM PERU/CASTOR OIL 60 GM TUBE TP SCH ×3 (08:04→20:42)
[2022-09-08] MEDS: DIGOXIN 125 MCG TABLET PO SCH (08:04)
[2022-09-08] MEDS: VERQUVO 5 MG PO SCH (08:04)
[2022-09-08] MEDS: HEPARIN 5,000 UNIT VIAL SQ SCH ×2 (08:06→20:37)
[2022-09-08] MEDS: MIDODRINE HCL 5 MG TABLET PO SCH ×3 (08:07→20:33)
[2022-09-08] MEDS: AMIODARONE 200 MG TABLET PO SCH (09:27)
[2022-09-08] MEDS: MAGNESIUM 2GM PREMIX 50ML 50 ML IV PRN (09:31)
[2022-09-08] MEDS: DILTIAZEM 180MG SR CAP PO SCH ×2 (11:28→20:33)
[2022-09-08] MEDS: ATORVASTATIN 40 MG TABLET PO SCH (20:33)
[2022-09-09] VITALS (109 sets, daily range): BP systolic 52–174; BP diastolic 19–107; PULSE 49–88; RESP 8–40; TEMP 97.7–98.6; O2SAT 90–100
[2022-09-09] MEDS: ZOSYN 3.375GM +NS 50ML IVPB SCH ×2 (00:51→15:36)
[2022-09-09] MEDS: INSULIN HUMULIN R 100 UNIT/ML 3ML SQ SCH ×4 (00:52→17:34)
[2022-09-09 04:23] LABS: CREATININE 5.4 mg/dL (0.5-1.5); POTASSIUM 3.3 mmol/L (3.5-5.1)
[2022-09-09 04:41] LABS: BASOPHILS # (AUTO) 0.03 K/uL (0.00-0.20); BASOPHILS % (AUTO) 0.2 % (0.0-5.0); EOSINOPHILS # (AUTO) 0.15 K/uL (0.00-0.70); HEMATOCRIT 22.3 % (42-54); IMMATURE GRANULOCYTE ABSOLUTE 0.32 K/uL (0-1); LYMPHOCYTES # (AUTO) 0.9 K/uL (1.0-4.8); LYMPHOCYTES % (AUTO) 6.3 % (21.0-51.0); MEAN CORPUSCULAR HEMOGLOBIN 33.3 pg (27.0-33.0); MEAN CORPUSCULAR HGB CONC 31.8 g/dL (32.0-36.0); MEAN CORPUSCULAR VOLUME 104.7 fL (79-99); MONOCYTES # (AUTO) 1.1 K/uL (0.1-1.0); MONOCYTES % (AUTO) 7.4 % (3.0-13.0); NEUTROPHILS # (AUTO) 12.3 K/uL (1.8-7.7); NEUTROPHILS % (AUTO) 82.9 % (40.0-77.0); NUCLEATED RED BLOOD CELLS 1.5 % (0.0-0.19); RED BLOOD CELL COUNT(AUTO) 2.13 MIL/uL (4.50-6.20); RED CELL DISTRIBUTION WIDTH 21.5 % (11.0-15.5); WHITE BLOOD COUNT (AUTO) 14.9 K/uL (4.8-10.8)
[2022-09-09 05:03] LABS: PLATELET COUNT (AUTO) 96 K/uL (130-400)
[2022-09-09] MEDS: POTASSIUM CHLORIDE 20MEQ/100ML 100 ML IV PRN (05:22)
[2022-09-09 05:24] LABS: ABG BASE EXCESS -3.2 mmol/L (-2.0-3.0); ABG HCO3 23.2 mmol/L (21.0-28.0); ABG OXYGEN SATURATION 85.9 % (95.0-99.0); ABG PCO2 49 mmHg (35-48); ABG PH 7.295 (7.35-7.450); CARBON MONOXIDE 0.8; HHb 13.9; PO2, ARTERIAL BG 60.4 mmHg (83.0-108.0); VENT MODE, BG BIPAP 14-8 (ROOM AIR)
[2022-09-09] MEDS: PANTOPRAZOLE 40 MG TAB DR PO SCH (06:14)
[2022-09-09] MEDS: IPRATROPIUM 0.5 MG/2.5 ML INH IH SCH (06:31)
[2022-09-09] MEDS: AMIODARONE 200 MG TABLET PO SCH (09:00)
[2022-09-09] MEDS: DILTIAZEM 180MG SR CAP PO SCH ×2 (09:00→20:08)
[2022-09-09] MEDS: MIDODRINE HCL 5 MG TABLET PO SCH ×3 (09:00→20:08)
[2022-09-09] MEDS: DIGOXIN 125 MCG TABLET PO SCH (09:00)
[2022-09-09 10:01] LABS: ABG BASE EXCESS -2.4 mmol/L (-2.0-3.0); ABG OXYGEN SATURATION 72.9 % (95.0-99.0); ABG PCO2 42 mmHg (35-48); ABG PH 7.353 (7.35-7.450); CARBON MONOXIDE 0.6; DEVICE COMMENT RR; HHb 26.8; PO2, ARTERIAL BG < 45.0 mmHg (83.0-108.0); VENT MODE, BG BIPAP 14.8 (ROOM AIR)
[2022-09-09] MEDS: SUCROFERRIC OXYHYDROXIDE 500 MG PO SCH ×3 (10:01→16:21)
[2022-09-09] MEDS: FERRIC CITRATE 1 GM PO SCH ×3 (10:01→17:00)
[2022-09-09] MEDS: 0.9%NACL 10ML VIAL IV SCH ×2 (10:01→20:08)
[2022-09-09] MEDS: VERQUVO 5 MG PO SCH (10:02)
[2022-09-09] MEDS: DOCUSATE NA 100MG/10ML UDCUP PO SCH ×2 (10:33→20:08)
[2022-09-09] MEDS: ASPIRIN 81 MG EC TAB PO SCH (10:33)
[2022-09-09] MEDS: GUAIFENESIN 600 MG TABLET.ER PO SCH ×2 (10:33→20:09)
[2022-09-09] MEDS: FLUDROCORTISONE ACETATE 0.1 MG TABLET PO SCH (10:33)
[2022-09-09] MEDS: HEPARIN 5,000 UNIT VIAL SQ SCH ×2 (10:34→20:09)
[2022-09-09] MEDS: BALSAM PERU/CASTOR OIL 60 GM TUBE TP SCH ×3 (10:34→20:09)
[2022-09-09] MEDS: IPRATROPIUM/ALBUTEROL SULFATE 3 ML SOLUTION IH SCH ×4 (10:42→22:26)
[2022-09-09 12:21] LABS: ABG BASE EXCESS -1.9 mmol/L (-2.0-3.0); ABG HCO3 22.7 mmol/L (21.0-28.0); ABG OXYGEN SATURATION 96.8 % (95.0-99.0); ABG PCO2 38 mmHg (35-48); ABG PH 7.397 (7.35-7.450); CARBON MONOXIDE 0.6; DEVICE COMMENT RN; HHb 3.2; PO2, ARTERIAL BG 95.9 mmHg (83.0-108.0); VENT MODE, BG BIPAP 16 (ROOM AIR)
[2022-09-09 12:36] LABS: BASOPHILS # (AUTO) 0.03 K/uL (0.00-0.20); BASOPHILS % (AUTO) 0.2 % (0.0-5.0); EOSINOPHILS # (AUTO) 0.11 K/uL (0.00-0.70); EOSINOPHILS % (AUTO) 0.8 % (0.0-8.0); HEMATOCRIT 22.2 % (42-54); IMMATURE GRANULOCYTE ABSOLUTE 0.29 K/uL (0-1); LYMPHOCYTES # (AUTO) 0.7 K/uL (1.0-4.8); LYMPHOCYTES % (AUTO) 5.6 % (21.0-51.0); MEAN CORPUSCULAR HEMOGLOBIN 32.1 pg (27.0-33.0); MEAN CORPUSCULAR HGB CONC 31.5 g/dL (32.0-36.0); MEAN CORPUSCULAR VOLUME 101.8 fL (79-99); MONOCYTES # (AUTO) 0.7 K/uL (0.1-1.0); MONOCYTES % (AUTO) 5.5 % (3.0-13.0); NEUTROPHILS # (AUTO) 11.1 K/uL (1.8-7.7); NEUTROPHILS % (AUTO) 85.7 % (40.0-77.0); NUCLEATED RED BLOOD CELLS 1.4 % (0.0-0.19); PLATELET COUNT (AUTO) 74 K/uL (130-400); RED BLOOD CELL COUNT(AUTO) 2.18 MIL/uL (4.50-6.20); RED CELL DISTRIBUTION WIDTH 21.3 % (11.0-15.5)
[2022-09-09 12:48] LABS: ALBUMIN 1.5 g/dL (3.5-5.0); BILIRUBIN,TOTAL 1.2 mg/dL (0.2-1.0); CREATININE 4.4 mg/dL (0.5-1.5); POTASSIUM 3.4 mmol/L (3.5-5.1); TOTAL PROTEIN, SERUM 5.7 g/dL (6.0-8.3)
[2022-09-09] MEDS: EPOETIN ALFA-EPBX (NON-ESRD) 10,000 UNIT/ML VIAL SQ SCH (15:37)
[2022-09-09] MEDS: ATORVASTATIN 40 MG TABLET PO SCH (20:08)
[2022-09-09] MEDS: TRAZODONE HCL 50 MG TAB PO PRN (20:08)
[2022-09-10] VITALS (119 sets, daily range): BP systolic 44–231; BP diastolic 20–226; PULSE 63–105; RESP 12–35; TEMP 97.4–99.5; O2SAT 79–100
[2022-09-10] MEDS: ZOSYN 3.375GM +NS 50ML IVPB SCH ×2 (00:24→13:26)
[2022-09-10] MEDS: INSULIN HUMULIN R 100 UNIT/ML 3ML SQ SCH ×4 (00:25→18:00)
[2022-09-10] MEDS: ACETAMINOPHEN 325 MG TAB PO PRN ×3 (02:13→16:33)
[2022-09-10] MEDS: IPRATROPIUM/ALBUTEROL SULFATE 3 ML SOLUTION IH SCH ×6 (02:50→22:13)
[2022-09-10 04:11] LABS: BASOPHILS # (AUTO) 0.02 K/uL (0.00-0.20); BASOPHILS % (AUTO) 0.2 % (0.0-5.0); EOSINOPHILS # (AUTO) 0.14 K/uL (0.00-0.70); EOSINOPHILS % (AUTO) 1.1 % (0.0-8.0); HEMATOCRIT 22.5 % (42-54); IMMATURE GRANULOCYTE ABSOLUTE 0.29 K/uL (0-1); LYMPHOCYTES # (AUTO) 0.7 K/uL (1.0-4.8); LYMPHOCYTES % (AUTO) 5.8 % (21.0-51.0); MEAN CORPUSCULAR HEMOGLOBIN 31.5 pg (27.0-33.0); MEAN CORPUSCULAR HGB CONC 32.4 g/dL (32.0-36.0); MONOCYTES % (AUTO) 7.5 % (3.0-13.0); NEUTROPHILS # (AUTO) 10.6 K/uL (1.8-7.7); NEUTROPHILS % (AUTO) 83.1 % (40.0-77.0); NUCLEATED RED BLOOD CELLS 1.9 % (0.0-0.19); PLATELET COUNT (AUTO) 89 K/uL (130-400); RED BLOOD CELL COUNT(AUTO) 2.32 MIL/uL (4.50-6.20); RED CELL DISTRIBUTION WIDTH 23.6 % (11.0-15.5); WHITE BLOOD COUNT (AUTO) 12.8 K/uL (4.8-10.8)
[2022-09-10 04:21] LABS: CREATININE 4.9 mg/dL (0.5-1.5); POTASSIUM 3.4 mmol/L (3.5-5.1)
[2022-09-10 04:39] LABS: ABG BASE EXCESS 0.5 mmol/L (-2.0-3.0); ABG HCO3 23.7 mmol/L (21.0-28.0); ABG OXYGEN SATURATION 99.1 % (95.0-99.0); ABG PCO2 34 mmHg (35-48); ABG PH 7.459 (7.35-7.450); PO2, ARTERIAL BG 153.5 mmHg (83.0-108.0); VENT MODE, BG BIPAP 16,8 (ROOM AIR)
[2022-09-10] MEDS: DIGOXIN 125 MCG TABLET PO SCH (07:53)
[2022-09-10] MEDS: DOCUSATE NA 100MG/10ML UDCUP PO SCH ×2 (07:53→20:14)
[2022-09-10] MEDS: DILTIAZEM 180MG SR CAP PO SCH ×2 (07:53→20:14)
[2022-09-10] MEDS: 0.9%NACL 10ML VIAL IV SCH ×2 (07:54→20:15)
[2022-09-10] MEDS: AMIODARONE 200 MG TABLET PO SCH (07:54)
[2022-09-10] MEDS: ASPIRIN 81 MG EC TAB PO SCH (07:54)
[2022-09-10] MEDS: GUAIFENESIN 600 MG TABLET.ER PO SCH ×2 (07:54→20:13)
[2022-09-10] MEDS: FLUDROCORTISONE ACETATE 0.1 MG TABLET PO SCH (07:55)
[2022-09-10] MEDS: VERQUVO 5 MG PO SCH (07:56)
[2022-09-10] MEDS: HEPARIN 5,000 UNIT VIAL SQ SCH ×2 (07:59→20:14)
[2022-09-10] MEDS: FERRIC CITRATE 1 GM PO SCH ×3 (08:00→17:00)
[2022-09-10] MEDS: SUCROFERRIC OXYHYDROXIDE 500 MG PO SCH ×3 (08:00→17:00)
[2022-09-10] MEDS: BALSAM PERU/CASTOR OIL 60 GM TUBE TP SCH ×3 (08:03→20:16)
[2022-09-10] MEDS: MIDODRINE HCL 5 MG TABLET PO SCH ×3 (08:48→20:15)
[2022-09-10] MEDS ORDERED: FLUOXETINE HCL 10 MG CAPSULE PO SCH (15:00)
[2022-09-10] MEDS ORDERED: MAG/ALUM/SIMETH 30 ML UDCUP PO PRN ×2 (20:00→20:30)
[2022-09-10] MEDS: ATORVASTATIN 40 MG TABLET PO SCH (20:14)
[2022-09-11] VITALS (102 sets, daily range): BP systolic 0–166; BP diastolic 0–116; PULSE 60–100; RESP 12–41; TEMP 97.9–98.4; O2SAT 96–100
[2022-09-11] MEDS: ZOSYN 3.375GM +NS 50ML IVPB SCH ×2 (01:20→13:03)
[2022-09-11] MEDS: IPRATROPIUM/ALBUTEROL SULFATE 3 ML SOLUTION IH SCH ×6 (02:17→22:25)
[2022-09-11 04:16] LABS: HEMATOCRIT 23.8 % (42-54); MEAN CORPUSCULAR HEMOGLOBIN 31.5 pg (27.0-33.0); MEAN CORPUSCULAR HGB CONC 31.5 g/dL (32.0-36.0); NUCLEATED RED BLOOD CELLS 0.9 % (0.0-0.19); PLATELET COUNT (AUTO) 84 K/uL (130-400); RED BLOOD CELL COUNT(AUTO) 2.38 MIL/uL (4.50-6.20); RED CELL DISTRIBUTION WIDTH 24.6 % (11.0-15.5); WHITE BLOOD COUNT (AUTO) 13.4 K/uL (4.8-10.8)
[2022-09-11 04:35] LABS: ALBUMIN 1.5 g/dL (3.5-5.0); BILIRUBIN,TOTAL 1.2 mg/dL (0.2-1.0); CREATININE 4.6 mg/dL (0.5-1.5); PHOSPHORUS 4.5 mg/dL (2.5-4.9); POTASSIUM 3.4 mmol/L (3.5-5.1)
[2022-09-11] MEDS: INSULIN HUMULIN R 100 UNIT/ML 3ML SQ SCH ×5 (05:58→23:57)
[2022-09-11 06:20] LABS: EOSINOPHILS % (MANUAL) 1 % (1-6); LYMPHOCYTES % (MANUAL) 3 % (22-44); MAN.DIFF COMMENT-IMPRESSION MANUAL DIFFERENTIAL; MONOCYTES % (MANUAL) 6 % (2-9); SEGMENTED NEUTROPHILS % 90 % (40-70); TOTAL CELLS COUNTED 100
[2022-09-11 06:21] LABS: PLATELET MORPHOLOGY COMMENT DECREASED
[2022-09-11] MEDS: PANTOPRAZOLE 40 MG TAB DR PO SCH (06:29)
[2022-09-11] MEDS: SUCROFERRIC OXYHYDROXIDE 500 MG PO SCH ×3 (08:00→17:00)
[2022-09-11] MEDS: FERRIC CITRATE 1 GM PO SCH ×3 (08:00→17:00)
[2022-09-11] MEDS: FLUDROCORTISONE ACETATE 0.1 MG TABLET PO SCH (08:25)
[2022-09-11] MEDS: DILTIAZEM 180MG SR CAP PO SCH ×2 (08:26→21:24)
[2022-09-11] MEDS: FLUOXETINE HCL 20 MG CAPSULE PO SCH (08:26)
[2022-09-11] MEDS: ASPIRIN 81 MG EC TAB PO SCH (08:26)
[2022-09-11] MEDS: VERQUVO 5 MG PO SCH (08:27)
[2022-09-11] MEDS: GUAIFENESIN 600 MG TABLET.ER PO SCH ×2 (08:27→21:25)
[2022-09-11] MEDS: MIDODRINE HCL 5 MG TABLET PO SCH ×3 (08:27→21:24)
[2022-09-11] MEDS: AMIODARONE 200 MG TABLET PO SCH (08:27)
[2022-09-11] MEDS: DOCUSATE NA 100MG/10ML UDCUP PO SCH ×2 (08:28→21:24)
[2022-09-11] MEDS: BALSAM PERU/CASTOR OIL 60 GM TUBE TP SCH ×4 (08:28→21:32)
[2022-09-11] MEDS: 0.9%NACL 10ML VIAL IV SCH ×2 (08:28→21:24)
[2022-09-11] MEDS: DIGOXIN 125 MCG TABLET PO SCH (08:28)
[2022-09-11] MEDS: HEPARIN 5,000 UNIT VIAL SQ SCH ×2 (08:31→21:25)
[2022-09-11] MEDS: PHENYLEPHRINE HCL 100 MG in 0.9% NACL 250ML 250 ML IV SCH (10:03)
[2022-09-11] MEDS: ATORVASTATIN 40 MG TABLET PO SCH (21:24)
[2022-09-12] VITALS (79 sets, daily range): BP systolic 107–157; BP diastolic 33–97; PULSE 53–92; RESP 14–33; TEMP 97.7–98.3; O2SAT 92–100
[2022-09-12] MEDS: IPRATROPIUM/ALBUTEROL SULFATE 3 ML SOLUTION IH SCH ×6 (02:28→21:27)
[2022-09-12 04:14] LABS: BASOPHILS # (AUTO) 0.03 K/uL (0.00-0.20); BASOPHILS % (AUTO) 0.2 % (0.0-5.0); EOSINOPHILS # (AUTO) 0.16 K/uL (0.00-0.70); EOSINOPHILS % (AUTO) 1.1 % (0.0-8.0); HEMATOCRIT 25.2 % (42-54); IMMATURE GRANULOCYTE ABSOLUTE 0.18 K/uL (0-1); LYMPHOCYTES # (AUTO) 0.8 K/uL (1.0-4.8); LYMPHOCYTES % (AUTO) 5.4 % (21.0-51.0); MEAN CORPUSCULAR HEMOGLOBIN 31.3 pg (27.0-33.0); MEAN CORPUSCULAR VOLUME 101.2 fL (79-99); MONOCYTES % (AUTO) 7.5 % (3.0-13.0); NEUTROPHILS # (AUTO) 11.8 K/uL (1.8-7.7); NEUTROPHILS % (AUTO) 84.5 % (40.0-77.0); NUCLEATED RED BLOOD CELLS 0.2 % (0.0-0.19); PLATELET COUNT (AUTO) 115 K/uL (130-400); RED BLOOD CELL COUNT(AUTO) 2.49 MIL/uL (4.50-6.20); RED CELL DISTRIBUTION WIDTH 24.6 % (11.0-15.5)
[2022-09-12 04:34] LABS: CREATININE 5.4 mg/dL (0.5-1.5); PHOSPHORUS 5.8 mg/dL (2.5-4.9); POTASSIUM 3.8 mmol/L (3.5-5.1)
[2022-09-12] MEDS: INSULIN HUMULIN R 100 UNIT/ML 3ML SQ SCH ×4 (06:00→23:33)
[2022-09-12] MEDS: FERRIC CITRATE 1 GM PO SCH ×3 (08:00→16:10)
[2022-09-12] MEDS: GUAIFENESIN 600 MG TABLET.ER PO SCH ×2 (08:00→20:12)
[2022-09-12] MEDS: SUCROFERRIC OXYHYDROXIDE 500 MG PO SCH ×3 (08:00→16:10)
[2022-09-12] MEDS: DILTIAZEM 180MG SR CAP PO SCH ×2 (08:01→20:11)
[2022-09-12] MEDS: ASPIRIN 81 MG EC TAB PO SCH (08:01)
[2022-09-12] MEDS: AMIODARONE 200 MG TABLET PO SCH (08:01)
[2022-09-12] MEDS: FLUOXETINE HCL 20 MG CAPSULE PO SCH (08:01)
[2022-09-12] MEDS: DOCUSATE NA 100MG/10ML UDCUP PO SCH ×2 (08:02→20:12)
[2022-09-12] MEDS: FLUDROCORTISONE ACETATE 0.1 MG TABLET PO SCH (08:02)
[2022-09-12] MEDS: HEPARIN 5,000 UNIT VIAL SQ SCH ×2 (08:03→20:15)
[2022-09-12] MEDS: BALSAM PERU/CASTOR OIL 60 GM TUBE TP SCH ×3 (08:06→20:12)
[2022-09-12] MEDS: VERQUVO 5 MG PO SCH (08:07)
[2022-09-12] MEDS: 0.9%NACL 10ML VIAL IV SCH ×2 (08:10→20:11)
[2022-09-12] MEDS: MIDODRINE HCL 5 MG TABLET PO SCH ×3 (09:00→20:12)
[2022-09-12] MEDS: ACETAMINOPHEN 325 MG TAB PO PRN ×2 (10:16→20:26)
[2022-09-12] MEDS: DIGOXIN 125 MCG TABLET PO SCH (10:17)
[2022-09-12] MEDS: EPOETIN ALFA-EPBX (NON-ESRD) 10,000 UNIT/ML VIAL SQ SCH (15:03)
[2022-09-12] MEDS: ATORVASTATIN 40 MG TABLET PO SCH (20:16)
[2022-09-12] MEDS: TRAZODONE HCL 50 MG TAB PO PRN (22:18)
[2022-09-13] VITALS (186 sets, daily range): BP systolic 0–164; BP diastolic 0–118; PULSE 57–106; RESP 11–32; O2SAT 94–100
[2022-09-13] MEDS: IPRATROPIUM/ALBUTEROL SULFATE 3 ML SOLUTION IH SCH ×6 (02:08→22:35)
[2022-09-13 04:30] LABS: BASOPHILS # (AUTO) 0.02 K/uL (0.00-0.20); BASOPHILS % (AUTO) 0.2 % (0.0-5.0); EOSINOPHILS # (AUTO) 0.14 K/uL (0.00-0.70); EOSINOPHILS % (AUTO) 1.4 % (0.0-8.0); HEMATOCRIT 24.1 % (42-54); IMMATURE GRANULOCYTE ABSOLUTE 0.09 K/uL (0-1); LYMPHOCYTES # (AUTO) 0.8 K/uL (1.0-4.8); LYMPHOCYTES % (AUTO) 7.5 % (21.0-51.0); MEAN CORPUSCULAR HEMOGLOBIN 31.2 pg (27.0-33.0); MEAN CORPUSCULAR HGB CONC 30.7 g/dL (32.0-36.0); MEAN CORPUSCULAR VOLUME 101.7 fL (79-99); MONOCYTES # (AUTO) 0.8 K/uL (0.1-1.0); MONOCYTES % (AUTO) 8.1 % (3.0-13.0); NEUTROPHILS # (AUTO) 8.2 K/uL (1.8-7.7); NEUTROPHILS % (AUTO) 81.9 % (40.0-77.0); PLATELET COUNT (AUTO) 96 K/uL (130-400); RED BLOOD CELL COUNT(AUTO) 2.37 MIL/uL (4.50-6.20); RED CELL DISTRIBUTION WIDTH 24.9 % (11.0-15.5)
[2022-09-13 04:42] LABS: CREATININE 4.6 mg/dL (0.5-1.5); POTASSIUM 3.4 mmol/L (3.5-5.1)
[2022-09-13] MEDS: INSULIN HUMULIN R 100 UNIT/ML 3ML SQ SCH ×3 (06:00→18:00)
[2022-09-13] MEDS: PANTOPRAZOLE 40 MG TAB DR PO SCH (06:12)
[2022-09-13] MEDS: ACETAMINOPHEN 325 MG TAB PO PRN ×2 (06:13→08:36)
[2022-09-13] MEDS: SUCROFERRIC OXYHYDROXIDE 500 MG PO SCH ×3 (08:00→16:49)
[2022-09-13] MEDS: FERRIC CITRATE 1 GM PO SCH ×3 (08:00→16:49)
[2022-09-13] MEDS: DOCUSATE NA 100MG/10ML UDCUP PO SCH ×2 (08:29→22:30)
[2022-09-13] MEDS: FLUDROCORTISONE ACETATE 0.1 MG TABLET PO SCH (08:29)
[2022-09-13] MEDS: GUAIFENESIN 600 MG TABLET.ER PO SCH ×2 (08:29→22:30)
[2022-09-13] MEDS: DILTIAZEM 180MG SR CAP PO SCH ×2 (08:29→22:30)
[2022-09-13] MEDS ORDERED: TRAMADOL HCL 50 MG TABLET PO PRN ×2 (08:30)
[2022-09-13] MEDS: FLUOXETINE HCL 20 MG CAPSULE PO SCH (08:30)
[2022-09-13] MEDS: ASPIRIN 81 MG EC TAB PO SCH (08:30)
[2022-09-13] MEDS: BALSAM PERU/CASTOR OIL 60 GM TUBE TP SCH ×3 (08:30→22:34)
[2022-09-13] MEDS: DIGOXIN 125 MCG TABLET PO SCH (08:30)
[2022-09-13] MEDS: AMIODARONE 200 MG TABLET PO SCH (08:30)
[2022-09-13] MEDS: VERQUVO 5 MG PO SCH (08:31)
[2022-09-13] MEDS: MIDODRINE HCL 5 MG TABLET PO SCH ×3 (08:58→22:39)
[2022-09-13] MEDS: HEPARIN 5,000 UNIT VIAL SQ SCH ×2 (08:59→22:31)
[2022-09-13] MEDS: 0.9%NACL 10ML VIAL IV SCH ×2 (09:00→22:29)
[2022-09-13] MEDS: PHENYLEPHRINE HCL 100 MG in 0.9% NACL 250ML 250 ML IV SCH (11:08)
[2022-09-13] MEDS: ATORVASTATIN 40 MG TABLET PO SCH (22:30)
[2022-09-14] VITALS (157 sets, daily range): BP systolic 72–147; BP diastolic 19–94; PULSE 63–94; RESP 8–38; TEMP 97–97.7; O2SAT 91–100
[2022-09-14] MEDS: IPRATROPIUM/ALBUTEROL SULFATE 3 ML SOLUTION IH SCH ×6 (00:44→22:43)
[2022-09-14 05:24] LABS: BASOPHILS # (AUTO) 0.02 K/uL (0.00-0.20); BASOPHILS % (AUTO) 0.2 % (0.0-5.0); EOSINOPHILS # (AUTO) 0.15 K/uL (0.00-0.70); EOSINOPHILS % (AUTO) 1.2 % (0.0-8.0); HEMATOCRIT 25.6 % (42-54); IMMATURE GRANULOCYTE ABSOLUTE 0.11 K/uL (0-1); LYMPHOCYTES # (AUTO) 0.8 K/uL (1.0-4.8); LYMPHOCYTES % (AUTO) 5.9 % (21.0-51.0); MEAN CORPUSCULAR HEMOGLOBIN 30.7 pg (27.0-33.0); MEAN CORPUSCULAR HGB CONC 30.5 g/dL (32.0-36.0); MEAN CORPUSCULAR VOLUME 100.8 fL (79-99); MONOCYTES % (AUTO) 7.7 % (3.0-13.0); NEUTROPHILS # (AUTO) 10.8 K/uL (1.8-7.7); NEUTROPHILS % (AUTO) 84.1 % (40.0-77.0); PLATELET COUNT (AUTO) 165 K/uL (130-400); RED BLOOD CELL COUNT(AUTO) 2.54 MIL/uL (4.50-6.20); RED CELL DISTRIBUTION WIDTH 24.1 % (11.0-15.5); WHITE BLOOD COUNT (AUTO) 12.8 K/uL (4.8-10.8)
[2022-09-14 05:42] LABS: ALBUMIN 1.7 g/dL (3.5-5.0); BILIRUBIN,TOTAL 1.2 mg/dL (0.2-1.0); CREATININE 5.6 mg/dL (0.5-1.5); MAGNESIUM 2.4 mg/dL (1.80-2.40); POTASSIUM 3.4 mmol/L (3.5-5.1)
[2022-09-14] MEDS: INSULIN HUMULIN R 100 UNIT/ML 3ML SQ SCH ×4 (06:00→18:00)
[2022-09-14] MEDS: FERRIC CITRATE 1 GM PO SCH ×3 (08:00→17:00)
[2022-09-14] MEDS: SUCROFERRIC OXYHYDROXIDE 500 MG PO SCH ×3 (08:00→17:00)
[2022-09-14] MEDS: GUAIFENESIN 600 MG TABLET.ER PO SCH ×2 (08:12→20:23)
[2022-09-14] MEDS: AMIODARONE 200 MG TABLET PO SCH (08:12)
[2022-09-14] MEDS: DILTIAZEM 180MG SR CAP PO SCH (08:12)
[2022-09-14] MEDS: FLUOXETINE HCL 20 MG CAPSULE PO SCH (08:13)
[2022-09-14] MEDS: FLUDROCORTISONE ACETATE 0.1 MG TABLET PO SCH (08:13)
[2022-09-14] MEDS: ASPIRIN 81 MG EC TAB PO SCH (08:13)
[2022-09-14] MEDS: DOCUSATE NA 100MG/10ML UDCUP PO SCH ×2 (08:14→20:23)
[2022-09-14] MEDS: HEPARIN 5,000 UNIT VIAL SQ SCH ×2 (08:14→20:30)
[2022-09-14] MEDS: VERQUVO 5 MG PO SCH (08:14)
[2022-09-14] MEDS: DIGOXIN 125 MCG TABLET PO SCH (08:15)
[2022-09-14] MEDS: MIDODRINE HCL 5 MG TABLET PO SCH ×3 (08:17→20:23)
[2022-09-14] MEDS: BALSAM PERU/CASTOR OIL 60 GM TUBE TP SCH ×2 (08:18→14:03)
[2022-09-14] MEDS: 0.9%NACL 10ML VIAL IV SCH ×2 (09:00→20:23)
[2022-09-14] MEDS ORDERED: PHARMACY COMMUNICATION MISC STA (11:08)
[2022-09-14] MEDS: PHENYLEPHRINE HCL 100 MG in 0.9% NACL 250ML 250 ML IV SCH (14:02)
[2022-09-14] MEDS: EPOETIN ALFA-EPBX (NON-ESRD) 10,000 UNIT/ML VIAL SQ SCH (18:35)
[2022-09-14] MEDS: ATORVASTATIN 40 MG TABLET PO SCH (20:23)
[2022-09-14] MEDS: DILTIAZEM 120MG SR CAP PO SCH (20:23)
[2022-09-14] MEDS: TRAZODONE HCL 50 MG TAB PO PRN (20:32)
[2022-09-15] VITALS (115 sets, daily range): BP systolic 80–156; BP diastolic 24–113; PULSE 64–103; RESP 12–33; O2SAT 92–100
[2022-09-15] MEDS: IPRATROPIUM/ALBUTEROL SULFATE 3 ML SOLUTION IH SCH ×6 (02:00→22:27)
[2022-09-15 05:42] LABS: BASOPHILS # (AUTO) 0.02 K/uL (0.00-0.20); BASOPHILS % (AUTO) 0.2 % (0.0-5.0); EOSINOPHILS # (AUTO) 0.18 K/uL (0.00-0.70); EOSINOPHILS % (AUTO) 1.6 % (0.0-8.0); IMMATURE GRANULOCYTE ABSOLUTE 0.08 K/uL (0-1); LYMPHOCYTES # (AUTO) 0.8 K/uL (1.0-4.8); LYMPHOCYTES % (AUTO) 7.6 % (21.0-51.0); MEAN CORPUSCULAR HGB CONC 30.4 g/dL (32.0-36.0); MONOCYTES # (AUTO) 0.8 K/uL (0.1-1.0); MONOCYTES % (AUTO) 7.1 % (3.0-13.0); NEUTROPHILS # (AUTO) 9.1 K/uL (1.8-7.7); NEUTROPHILS % (AUTO) 82.8 % (40.0-77.0); PLATELET COUNT (AUTO) 133 K/uL (130-400); RED BLOOD CELL COUNT(AUTO) 2.55 MIL/uL (4.50-6.20); RED CELL DISTRIBUTION WIDTH 24.3 % (11.0-15.5)
[2022-09-15] MEDS: INSULIN HUMULIN R 100 UNIT/ML 3ML SQ SCH ×5 (06:00→23:23)
[2022-09-15 06:12] LABS: ALBUMIN 1.6 g/dL (3.5-5.0); BILIRUBIN,TOTAL 1.1 mg/dL (0.2-1.0); CREATININE 4.9 mg/dL (0.5-1.5); MAGNESIUM 2.2 mg/dL (1.80-2.40); POTASSIUM 3.5 mmol/L (3.5-5.1); TOTAL PROTEIN, SERUM 6.8 g/dL (6.0-8.3)
[2022-09-15] MEDS: BALSAM PERU/CASTOR OIL 60 GM TUBE TP SCH ×4 (06:36→20:16)
[2022-09-15] MEDS: PHENYLEPHRINE HCL 100 MG in 0.9% NACL 250ML 250 ML IV SCH ×3 (07:04→20:20)
[2022-09-15] MEDS ORDERED: PHARMACY COMMUNICATION MISC SCH ×2 (07:30→18:00)
[2022-09-15] MEDS: SUCROFERRIC OXYHYDROXIDE 500 MG PO SCH ×3 (08:00→15:24)
[2022-09-15] MEDS: FERRIC CITRATE 1 GM PO SCH ×3 (08:00→15:24)
[2022-09-15] MEDS: FLUDROCORTISONE ACETATE 0.1 MG TABLET PO SCH (08:21)
[2022-09-15] MEDS: PANTOPRAZOLE 40 MG TAB DR PO SCH (08:21)
[2022-09-15] MEDS: DOCUSATE NA 100MG/10ML UDCUP PO SCH ×2 (08:21→20:06)
[2022-09-15] MEDS: FLUOXETINE HCL 20 MG CAPSULE PO SCH (08:21)
[2022-09-15] MEDS: ASPIRIN 81 MG EC TAB PO SCH (08:21)
[2022-09-15] MEDS: AMIODARONE 200 MG TABLET PO SCH (08:21)
[2022-09-15] MEDS: GUAIFENESIN 600 MG TABLET.ER PO SCH ×2 (08:21→20:06)
[2022-09-15] MEDS: DILTIAZEM 120MG SR CAP PO SCH ×2 (08:21→20:07)
[2022-09-15] MEDS: MIDODRINE HCL 5 MG TABLET PO SCH ×3 (08:22→20:07)
[2022-09-15] MEDS: HEPARIN 5,000 UNIT VIAL SQ SCH ×2 (08:23→20:13)
[2022-09-15] MEDS: 0.9%NACL 10ML VIAL IV SCH ×2 (08:24→20:06)
[2022-09-15] MEDS ORDERED: DIGOXIN 125 MCG TABLET PO SCH (09:00)
[2022-09-15] MEDS: VERQUVO 5 MG PO SCH (09:06)
[2022-09-15] MEDS: ACETAMINOPHEN 325 MG TAB PO PRN (13:55)
[2022-09-15] MEDS ORDERED: PHARMACY COMMUNICATION MISC STA (15:21)
[2022-09-15] MEDS: ATORVASTATIN 40 MG TABLET PO SCH (20:06)
[2022-09-15] MEDS: TRAZODONE HCL 50 MG TAB PO PRN (20:14)
[2022-09-16] VITALS (49 sets, daily range): BP systolic 72–143; BP diastolic 32–116; PULSE 72–104; RESP 16–44; O2SAT 94–100
[2022-09-16] MEDS: IPRATROPIUM/ALBUTEROL SULFATE 3 ML SOLUTION IH SCH ×3 (02:12→10:36)
[2022-09-16] MEDS: INSULIN HUMULIN R 100 UNIT/ML 3ML SQ SCH (05:56)
[2022-09-16 06:46] LABS: BASOPHILS # (AUTO) 0.03 K/uL (0.00-0.20); BASOPHILS % (AUTO) 0.3 % (0.0-5.0); EOSINOPHILS # (AUTO) 0.17 K/uL (0.00-0.70); EOSINOPHILS % (AUTO) 1.7 % (0.0-8.0); HEMATOCRIT 26.9 % (42-54); IMMATURE GRANULOCYTE ABSOLUTE 0.07 K/uL (0-1); LYMPHOCYTES # (AUTO) 0.7 K/uL (1.0-4.8); LYMPHOCYTES % (AUTO) 6.4 % (21.0-51.0); MEAN CORPUSCULAR HGB CONC 30.9 g/dL (32.0-36.0); MEAN CORPUSCULAR VOLUME 100.4 fL (79-99); MONOCYTES # (AUTO) 0.6 K/uL (0.1-1.0); MONOCYTES % (AUTO) 6.1 % (3.0-13.0); NEUTROPHILS # (AUTO) 8.6 K/uL (1.8-7.7); NEUTROPHILS % (AUTO) 84.8 % (40.0-77.0); NUCLEATED RED BLOOD CELLS 0.3 % (0.0-0.19); PLATELET COUNT (AUTO) 157 K/uL (130-400); RED BLOOD CELL COUNT(AUTO) 2.68 MIL/uL (4.50-6.20); RED CELL DISTRIBUTION WIDTH 24.7 % (11.0-15.5); WHITE BLOOD COUNT (AUTO) 10.2 K/uL (4.8-10.8)
[2022-09-16] MEDS: FERRIC CITRATE 1 GM PO SCH (08:00)
[2022-09-16] MEDS: SUCROFERRIC OXYHYDROXIDE 500 MG PO SCH (08:00)
[2022-09-16 08:02] LABS: ALBUMIN 1.6 g/dL (3.5-5.0); BILIRUBIN,TOTAL 1.1 mg/dL (0.2-1.0); CREATININE 5.8 mg/dL (0.5-1.5); DIGOXIN 1.71 ng/mL (0.50-2.00); MAGNESIUM 2.2 mg/dL (1.80-2.40); TOTAL PROTEIN, SERUM 6.9 g/dL (6.0-8.3)
[2022-09-16] MEDS: VERQUVO 5 MG PO SCH (08:28)
[2022-09-16] MEDS: ASPIRIN 81 MG EC TAB PO SCH (08:29)
[2022-09-16] MEDS: MIDODRINE HCL 5 MG TABLET PO SCH (08:30)
[2022-09-16] MEDS: FLUOXETINE HCL 20 MG CAPSULE PO SCH (08:30)
[2022-09-16] MEDS: HEPARIN 5,000 UNIT VIAL SQ SCH (08:31)
[2022-09-16] MEDS: 0.9%NACL 10ML VIAL IV SCH (08:31)
[2022-09-16] MEDS: DOCUSATE NA 100MG/10ML UDCUP PO SCH (08:31)
[2022-09-16] MEDS: BALSAM PERU/CASTOR OIL 60 GM TUBE TP SCH (08:32)
[2022-09-16] MEDS: AMIODARONE 200 MG TABLET PO SCH (08:35)
[2022-09-16] MEDS: FLUDROCORTISONE ACETATE 0.1 MG TABLET PO SCH (08:35)
[2022-09-16] MEDS: GUAIFENESIN 600 MG TABLET.ER PO SCH (08:35)
[2022-09-16] MEDS: DILTIAZEM 120MG SR CAP PO SCH (08:35)
[2022-09-16] MEDS ORDERED: GLYCOPYRROLATE 1 MG/5 ML SYRINGE IV PRN (11:00)
[2022-09-16] MEDS ORDERED: LORAZEPAM 2 MG/ML 1 ML VIAL IVP PRN (11:00)
[2022-09-16] MEDS ORDERED: MORPHINE 2 MG SYG IVP PRN (11:00)
[2022-09-16] MEDS ORDERED: GLYCOPYRROLATE 0.2 MG/ML 5 ML VIAL IVP PRN (12:00)
== END 2022-09-16 15:50 | DRG 233 ==
LOC: DAHIP 08-23 10:30 → 2CV 08-23 11:07 → 2CH 08-24 22:15 → 2BH 09-04 03:45 → 2CH 09-14 07:38
PROVIDERS: ADMIT Thoracic Surgery (Cardiothoracic Vascular Surgery); ATTEND Thoracic Surgery (Cardiothoracic Vascular Surgery)
PROC: 06BQ4ZZ Excision of Left Saphenous Vein, Percutaneous Endoscopic Approach (ICD-10-PCS; 2022-08-23)
PROC: 0PH000Z Insertion of Rigid Plate Internal Fixation Device into Sternum, Open Approach (ICD-10-PCS; 2022-08-23)
PROC: 5A2204Z Restoration of Cardiac Rhythm, Single (ICD-10-PCS; 2022-08-23)
PROC: 02100Z9 Bypass Coronary Artery, One Artery from Left Internal Mammary, Open Approach (ICD-10-PCS; 2022-08-23 13:12)
PROC: 021109W Bypass Coronary Artery, Two Arteries from Aorta with Autologous Venous Tissue, Open Approach (ICD-10-PCS; 2022-08-23 13:12)
PROC: 5A1D70Z Performance of Urinary Filtration, Intermittent, Less than 6 Hours Per Day (ICD-10-PCS; 2022-08-24)
PROC: 5A1D70Z Performance of Urinary Filtration, Intermittent, Less than 6 Hours Per Day (ICD-10-PCS; 2022-08-26)
PROC: 5A1223Z Performance of Cardiac Pacing, Continuous (ICD-10-PCS; 2022-08-27)
PROC: 5A1955Z Respiratory Ventilation, Greater than 96 Consecutive Hours (ICD-10-PCS; 2022-08-27)
PROC: 0BH17EZ Insertion of Endotracheal Airway into Trachea, Via Natural or Artificial Opening (ICD-10-PCS; 2022-08-27)
PROC: 5A1D70Z Performance of Urinary Filtration, Intermittent, Less than 6 Hours Per Day (ICD-10-PCS; 2022-08-29)
PROC: 5A2204Z Restoration of Cardiac Rhythm, Single (ICD-10-PCS; 2022-08-30)
PROC: 5A1D70Z Performance of Urinary Filtration, Intermittent, Less than 6 Hours Per Day (ICD-10-PCS; 2022-08-31)
PROC: 5A1D70Z Performance of Urinary Filtration, Intermittent, Less than 6 Hours Per Day (ICD-10-PCS; 2022-09-02)
PROC: 5A09357 Assistance with Respiratory Ventilation, Less than 24 Consecutive Hours, Continuous Positive Airway Pressure (ICD-10-PCS; 2022-09-02)
PROC: 02HV33Z Insertion of Infusion Device into Superior Vena Cava, Percutaneous Approach (ICD-10-PCS; 2022-09-03)
PROC: 5A1D70Z Performance of Urinary Filtration, Intermittent, Less than 6 Hours Per Day (ICD-10-PCS; 2022-09-05)
PROC: 5A1D70Z Performance of Urinary Filtration, Intermittent, Less than 6 Hours Per Day (ICD-10-PCS; 2022-09-06)
PROC: 30233N1 Transfusion of Nonautologous Red Blood Cells into Peripheral Vein, Percutaneous Approach (ICD-10-PCS; 2022-09-07)
PROC: 5A1D70Z Performance of Urinary Filtration, Intermittent, Less than 6 Hours Per Day (ICD-10-PCS; 2022-09-07)
PROC: 5A1D70Z Performance of Urinary Filtration, Intermittent, Less than 6 Hours Per Day (ICD-10-PCS; 2022-09-08)
PROC: 03HB33Z Insertion of Infusion Device into Right Radial Artery, Percutaneous Approach (ICD-10-PCS; principal; 2022-09-09)
PROC: 4A023N7 Measurement of Cardiac Sampling and Pressure, Left Heart, Percutaneous Approach (ICD-10-PCS; 2022-09-09)
PROC: B2111ZZ Fluoroscopy of Multiple Coronary Arteries using Low Osmolar Contrast (ICD-10-PCS; 2022-09-09)
PROC: 5A1D70Z Performance of Urinary Filtration, Intermittent, Less than 6 Hours Per Day (ICD-10-PCS; 2022-09-09)
PROC: 5A1D70Z Performance of Urinary Filtration, Intermittent, Less than 6 Hours Per Day (ICD-10-PCS; 2022-09-10)
PROC: 5A1D70Z Performance of Urinary Filtration, Intermittent, Less than 6 Hours Per Day (ICD-10-PCS; 2022-09-11)
PROC: 5A1D70Z Performance of Urinary Filtration, Intermittent, Less than 6 Hours Per Day (ICD-10-PCS; 2022-09-14)
DX: I25.10 Atherosclerotic heart disease of native coronary artery without angina pectoris (principal); A41.9 Sepsis, unspecified organism; N18.6 End stage renal disease; J15.1 Pneumonia due to Pseudomonas; I50.23 Acute on chronic systolic (congestive) heart failure; J96.01 Acute respiratory failure with hypoxia; J95.2 Acute pulmonary insufficiency following nonthoracic surgery; I13.2 Hypertensive heart and chronic kidney disease with heart failure and with stage 5 chronic kidney disease, or end stage renal disease; I48.92 Unspecified atrial flutter; I47.1 Supraventricular tachycardia; J44.0 Chronic obstructive pulmonary disease with (acute) lower respiratory infection; I46.2 Cardiac arrest due to underlying cardiac condition; E11.22 Type 2 diabetes mellitus with diabetic chronic kidney disease; Z20.822 Contact with and (suspected) exposure to COVID-19; D53.9 Nutritional anemia, unspecified; E11.40 Type 2 diabetes mellitus with diabetic neuropathy, unspecified; I49.5 Sick sinus syndrome; Z79.01 Long term (current) use of anticoagulants; Z99.2 Dependence on renal dialysis; E66.01 Morbid (severe) obesity due to excess calories; E78.00 Pure hypercholesterolemia, unspecified; F41.9 Anxiety disorder, unspecified; I25.5 Ischemic cardiomyopathy; I95.89 Other hypotension; K74.60 Unspecified cirrhosis of liver; L89.152 Pressure ulcer of sacral region, stage 2; L89.322 Pressure ulcer of left buttock, stage 2; L89.312 Pressure ulcer of right buttock, stage 2; Z51.5 Encounter for palliative care; Z79.899 Other long term (current) drug therapy; Z87.891 Personal history of nicotine dependence; Z91.158 Patient's noncompliance with renal dialysis for other reason; Z91.199 Patient's noncompliance with other medical treatment and regimen due to unspecified reason; Z95.1 Presence of aortocoronary bypass graft; Z95.5 Presence of coronary angioplasty implant and graft; I48.0 Paroxysmal atrial fibrillation
CPT/HCPCS: 31500; 33210; 36415; 36600; 71045; 80048; 80053; 80061; 80076; 80162; 82330; 82435; 82803; 82947; 82948; 83036; 83605; 83735; 83880; 84100; 84132; 84295; 84484; 85014; 85018; 85025; 85027; 85347; 85378; 85610; 85730; 86704; 86706; 86850; 86900; 86901; 86923; 87040; 87071; 87077; 87186; 87205; 87340; 87426; 87641; 90935; 92950; 93005; 93306; 93312; 93880; 94002; 94003; 94010; 94150; 94640; 94660; 94664; 94667; 94668; 97039; A4357; A7048; C1751; C1894; G0378; J0171; J0282; J0330; J0461; J0610; J0690; J1160; J1644; J1815; J1940; J1956; J2001; J2060; J2150; J2250; J2270; J2371; J2405; J2440; J2543; J2704; J2720; J3010; J3475; J3480; J3490; J7030; J7040; J7050; J7060; J7608; P9016; P9045; P9046; A4215; A4221; A4222; A4223; A4315; A4452; A4510; A4600; A4649; A4663; A5120; A6204; A6213; A6214; A6219; A6260; A9900; C1713; C1729; C1776; C1887; Q5106